=== PATIENT | female | born 2005 | race Caucasian/White ===

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

== ENCOUNTER 2024-11-13 10:50 | Emergency (ER) | payer BC, MEDICAID, SELFPAY ==
--- OUTSIDE RECORDS SUMMARY | 2024-11-13 10:53 | XMS_ITS | Referral Summary ---
Author Organization [facility] Address [address] [place] [address] Care Team Providers Care Client Associate Name Role Phone No, Physician Primary Care Provider [phone] Allergies No known active allergies Medications medroxyPROGESTERon e (PROVERA) 10 mg tablet Take 1 tablet three times daily for 3 days followed by 1 tablet twice daily for 3 days followed by 1 tablet daily for 3 days 18 tablet 2 Active norelgestromin-eth in.estradioL (ORTHO EVRA) 150-35 mcg/24 hrIndications:Preg syl Contraception Apply 1 patch each week for 3 weeks, then remove for 1 week. 3 patch 3 Active ARIPiprazole (ABILIFY) 10 mg tablet Take 1 tablet (10 mg total) by mouth daily 3 Active escitalopram (LEXAPRO) 10 mg tablet Take 1 tablet (10 mg total) by mouth daily Active Active Problems No known active problems Immunizations Immunization Administration Dates Next Due DTaP 01/25/2005,04/25/2004,02/21/2004 ,2003 DTaP / IPV 02/17/2009 HPV9 12/27/2021,07/15/2018,01/08/2018 Hep A, Ped Unspecified 10/30/2009,02/17/2009 Hep B / HiB 04/25/2004 Hep B, Adolescent or Pediatric 2003,2003 HiB 10/24/2004,02/21/2004,2003 IPV 10/24/2004,02/21/2004,2003 Influenza, Split 02/17/2009 Influenza, Unspecified 05/04/2007,04/25/2004 MMR 02/17/2009,10/24/2004 Meningococcal MCV4P (Menactra) 01/08/2018 Pneumococcal Conjugate 7-Valent 10/24/2004,04/25,02/21/2004,2003 Tdap 01/08/2018 Varicella 02/17/2009,10/24/2004 Social History Tobacco Use Types Packs/Day Years Used Date Smoking Tobacco: Every Day Cigarettes Smokeless Tobacco: Never Tobacco Cessation:Ready to Q uit: Not Asked; Counseling Given: Not Answered Personal Safety Answer Date Recorded Getting School Help Needed Not on file 06/12 Comments No Sex and Gender Information Value Date Recorded Sex Assigned at Not on file Legal Sex Female 9:53 AM FORESTRY ADVISER Gender Identity Not on file Sexual Orientation Not on file Occupation Industry Job Start Date Job End Date [employer] Not on file Not on file Not on file Last Filed Vital Signs Vital Sign Reading Time Taken Comments Blood Pressure 118/72 04/18/2022 2:18 PM FORESTRY ADVISER Pulse - - Temperature - - Respiratory Rate - - Oxygen Saturation - - Inhaled Oxygen Concentration - - Weight 58.9 kg (129 lb 12.8 oz) 04/18/2022 2:18 PM FORESTRY ADVISER Height 170.2 cm (5' 7) 12/27/2021 3:26 PM CDT Body Mass Index 20.33 12/27/2021 3:26 PM CDT Plan of Treatment Not on file Insurance Care Teams Client Associate Relationship Specialty Start Date End Date No, Physician PCP - General 10/03/21
--- OUTSIDE RECORDS SUMMARY | 2024-11-13 10:53 | XMS_ITS | Patient Health Record ---
Author Organization [facility] Address [address] [place] [address] Support Name Relationship Address Phone Penny Kaiser Guarantor Unknown Unavailable Allergies Allergen (clinical drug ingredient) Drug/Non Drug Allergy documented on EMR Reaction Allergy Type Onset Date Status Seasonale Sneeze & feeling my own manic tendencies start to rise without being able to help it myself unfortunately Drug Allergy Active Grass Mix Pollens Allergen Ext Sneeze , stuffy head, a need to shut down at that specific point in time Drug Allergy Active Reason For Referral No Information Medications Medication SIG (Take, Route, Frequency, Duration) Notes Start Date End Date Status Bromfed DM 2-30-10 MG/5ML 10 ml as neede d Orally every 8 hrs as needed for cough and congestion for 7 days 08/02/2023 Unknown Amoxicillin 500 MG 1 capsule Orally jairon ry 8 hrs for 7 days 08/02/2023 Unknown hydrOXYzine HCl 25 MG 1 tablet as needed for anxiousness Orally Every 6 hours for 14 days 10/16/2023 Active Social History Tobacco Use: Social History Observation Description Date Details (start date - stop date) Never Smoker NA - NA Tobacco Use/Smoking Question Answer Notes Are you a nonsmoker Plan Of Treatment Pending Test Test Name Order Date COMPREHENSIVE METABOLIC PANEL (10344) CBC (INCLUDES DIFF/PLT) (6399) THYROID PANEL WITH TSH (7444) 10/16/2023 Insurance Providers Payer Name Payer Address Payer Phone Subscriber Number Group Number Insured Name Patient Relationship to Insured Coverage Start Date Coverage End Date Medicaid of [place] [address] [address] [place] [address] [id number] Penny Kaiser Self - patient is the insured Medical (General) History Medical History History ICD Code Undiagnosed/Diagnosed Manic Bipolar Diso rder 16-17 years old honestly OCD Same day I was told some thing I wasn't and I knew that already I'm not stupid I promise you that they make people feel dumb and they know that
--- OUTSIDE RECORDS SUMMARY | 2024-11-13 10:53 | XMS_ITS | Clinical Summary ---
Author Organization [facility] Address [address] [place] [address] Care Team Providers Care Retail Merchandiser Technician Name Role Phone No, Physician Primary Care Provider [phone] Allergies No known active allergies Medications medroxyPROGESTERon [...] on file Legal Sex Female 9:53 AM CARD MAKER Gender Identity Not on file Sexual Orientation Not on file Occupation Industry Job Start Date Job End Date [employer] Not on file Not on file Not on file Obstetrics History Para Term AB IAB SAB Ectopic Multiple Livin g Live Births 0 0 0 0 0 0 0 0 0 0 0 Last Filed Vital Signs Vital Sign Reading Time Taken Comments Blood Pressure 118/72 04/18/2022 2:18 PM CARD MAKER Pulse - - Temperature - - Respiratory Rate - - Oxygen Saturation - - Inhaled Oxygen Concentration - - Weight 58.9 kg (129 lb 12.8 oz) 04/18/2022 2:18 PM CARD MAKER Height 170.2 cm (5' 7) 12/27/2021 3:26 PM CDT Body Mass Index 20.33 12/27/2021 3:26 PM CDT Plan of Treatment Health Maintenance Due Date Last Done Comments Cervical Cancer Screening 2003 Chlamydia and Gonorrhea (GC/CT) Screening 2003 Depression Screening 2003 Hepatitis C Screening 2003 Pneumococcal vaccine <65 (1 of 1 - PPSV23) 10/20/2009 10/24/2004, 04/25/2004, 02/21/2004, Additional history exists Meningococcal B Vaccine (1 of 2 - Standard) 2019 Regular Well Visit/Exam 18-64 10/20/2021 Influenza Vaccine (Season Ended) 2025 02/17/2009, 05/04/2007, 04/25/2004 DTaP/Tdap/Td Vaccine (7 - Td or Tdap) 01/09/2028 01/08/2018, 02/17/2009, 01/25/2005, Additional history exists Hepatitis B Screening Completed 04/25/2004 , 2003, 2003 Varicella Vaccines Completed 02/17/2009, 10/24/2004 Meningococcal Vaccine Aged Out 01/08/2018 No jose kristin eligible based on patient's age to complete this topic HPV Vaccines Completed 12/27/2021, 11/2018, 01/08/2018 Insurance [facility] Care Teams Retail Merchandiser Technician Relationship Specialty Start Date End Date No, Physician PCP - General 10/03/21
--- OUTSIDE RECORDS SUMMARY | 2024-11-13 10:53 | XMS_ITS | Clinical Summary ---
Author Organization [facility] [employer] Address [address] [place] [address] Care Team Providers Care Torch Operator Name Role Phone Unavailable Primary Care Provider Unavailabl e Source Comments [facility],non-owned Affiliates and Associated Physician Practices is amultiple site organization consisting of ambulatory clinics and hospital sitesin [place], [place], [place] and [place]. This disclosure is being madepursuant to the Care Everywhere program and may not contain all information available regarding this patient. Last updated 18.[facility] [employer] Allergies No known active allergies Medications * This document contains information received from the source organization and may not represent a complete record from that organization. * Be aware that medications may not be up to date on this document. Alwaysverify current medications with the patient. escitalopram (Lexapro) 20 MG tabletIndicati ons:Major Depressive Disorder,Postt raumatic Stress Disorder Take 1 (one) tablet by mouth once daily for 15 days Reasons: Major Depressive Disorder, Posttraumatic Stress Disorder 15 tablet 1 4 Active hydrOXYzine HCl (Atarax) 50 MG tabletIndicati ons:Anxiety Take 1 (one) tablet by mouth 2 times daily as needed Reasons: Feeling Anxious 30 tablet 1 4 Active traZODone (Desyrel) 50 MG tabletIndicati ons:Insomnia,M ajor Depressive Disorder Take 1 (one) tablet by mouth nightly as needed for Insomnia Reasons: Major Depressive Disorder, Trouble Sleeping 15 tablet 1 4 Active Active Problems Problem Noted Date Diagnosed Date Post traumatic stress disorder (PTSD) 12/26/2023 Adjustment disorder with depressed mood 12/23/19 24 Cannabis use disorder 12/23/2023 Social History Tobacco Use Types Packs/Day Years Used Date Smoking Tobacco: Some Days Cigarettes Smokeless Tobacco: Never Tobacco Cessation:Ready to Q uit: No; Counseling Given: Yes Alcohol Use Standard Drinks/Week Comments Not Currently 0 (1 standard drink = 0.6 oz pur e alcohol) just occasionally AUDIT-C Answer Date Recorded Q1: How often do you have a drink containing alc ohol? Monthly or less 12/23/2023 Q2: How many drinks containi ng alcohol do you have on a typical day when you are drinking? 1 or 2 12/23/2023 Q3: How often do you have si x or more drinks on one occasion? Never 12/23/2023 Overall Financial Resource Strain (CARDIA) Answe r Date Recorded How hard is it for you to pa y for the very basics like food, housing, medical care, and heating? Somewhat hard 12/23/2023 [facility] Occup[facility] ional [facility] - Occupational Stress Questionnaire Answer Date Recorded Do you feel stress - tense, restless, nervous, or anxious, or unable to sleep at night because your mind is troubled all the time - these days? Only a little 12/23/2023 Hunger Vital Sign Answer Date Recorded Within the past 12 months, y ou worried that your food would run out before you got the money to buy more. Sometimes true Within the past 12 months, t he food you bought just didn't last and you didn't have money to get more. Never true PRAPARE - Transportation Answer Date Re corded In the past 12 months, has l ack of transportation kept you from medical appointments or from getting medications? No 12/07 In the past 12 months, has l ack of transportation kept you from meetings, work, or from getting things needed for daily living? No 12/23/2023 Housing Stability Vital Sign Answer Campos e Recorded In the last 12 months, was t here a time when you were not able to pay the mortgage or rent on time? Patient declined 12/23/19 24 In the last 12 months, how many places have you lived? 1 12/23/2023 In the last 12 months, was t here a time when you did not have a steady place to sleep or slept in a mcc (including now)? No 12/23/2023 Comments No Sex and Gender Information Value Date Recorded Sex Assigned at Not on file Legal Sex Female 11:17 AM RHIC SYSTEMS SAFETY ENGINEER Gender Identity Not on file Sexual Orientation Not on file Last Filed Vital Signs Vital Sign Reading Time Taken Comments Blood Pressure 116/71 12/27/2023 7:37 AM CDT Pulse 75 12/27/2023 7:37 AM CDT Temperature 36.7 C (98.1 F) 12/27/2023 7:37 AM CDT Respiratory Rate 16 12/27/2023 7:37 AM CDT Oxygen Saturation 100% 12/27/2023 7:37 AM CDT Inhaled Oxygen Concentration - - Weight 54.4 kg (120 lb) 12/23/2023 3:40 AM CDT Height 171 cm (5' 7.32) 12/23/2023 3:40 AM CDT Body Mass Index 18.61 12/23/2023 3:40 AM CDT Plan of Treatment Health Maintenance Due Date Last Done Comments PAP SMEAR 2003 HIV SCREENING 10/20/2018 HPV VACCINE (1 - 3-dose series) 10/20/2018 CHLAMYDIA/GONORRHEA SCREENING 2019 MENINGOCOCCAL (Group B) VACCINE SHARED DECISION-MAKING (1 of 2 - Standard) 2019 HEPATITIS C SCREENING 10/16/2021 DTAP/TDAP/TD VACCINES (1 - Tdap) 10/20/2022 HEPATITIS B VACCINE (1 of 3 - 19+ 3-dose series) 10/20/2022 PNEUMOCOCCAL VACCINE (1 of 2 - PCV) 10/20/2022 COVID-19 VACCINE (1 - 2023-2 5 season) 2024 DEPRESSION SCREENING 06/09/2024 INFLUENZA VACCINE (Season Ended) 2025 02/17/2009, 05/04/2007, 04/25/2004 ZOSTER VACCINE (1 of 2) 10/20/2053 HIB VACCINE Aged Out No longer eligi ble based on patient's age to complete this topic MENINGOCOCCAL GROUPS A/C/Y/W VACCINE Aged Out No longer eligible b ased on patient's age to complete this topic Insurance [facility] Advance Directives * Full Code (Latest Code Status on File) Date Activated Date Inactivated Comments 12/23/2023 4:07 AM 12/27/2023 7:56 PM
--- OUTSIDE RECORDS SUMMARY | 2024-11-13 10:53 | XMS_ITS | Clinical Summary ---
Author Organization [facility] Address [address] [place] [address] Phone Care Team Providers Care Digital Media Associate Name Role Phone Seamus Travis PAC Primary Care Provider Allergies No known active allergies Medications Xulane 150-35 MCG/24HR PATCH WEEKLY APPLY 1 PATCH EACH WEEK FOR 3 WEEKS, THEN REMOVE FOR 1 WEEK. 2 Active escitalopram (LEXAPRO) 10 MG TabletIndicatio ns:Anxiety and depression Take 1 Tablet by mouth daily. 90 Tablet 3 3 Active Additional Information Patient not taking.Reported on 12/22/2023 Active Problems No known active problems Immunizations Immunization Administration Dates Next Due DTAP VACCINE 01/25/2005, 4,02/21/2004,12/28 DTAP-IPV 02/17/2009 HEP B/HIB Combined Vaccine 04/25/2004 Hepatitis A, Pediatric, Unsp ecified Formulation 10/30/2009,02/17/2009 Hepatitis B Vaccine, Pediatric/adolescent 2003,2003 Hib Vaccine,unspecified Formulation 10/24/2004,0 02/21/2004,2003 Human Papillomavirus (HPV) 9 -valent Vaccine 12/27/2021,07/15/2018,01/08/2018 Inactivated Polio Vaccine 10/24/2004,02/21/2004, 2003 Influenza Vaccine,unspecifie d Formulation 05/04/2007,04/25/2004 MMR Vaccine 02/17/2009,10/24/2004 Meningococcal Vaccine 01/08/2018 Pneumococcal Vaccine Peds - 7 Valent ,04/25/2004,02/21/2004,12/28 TDAP Vaccine 01/08/2018 Varicella Vaccine Live 02/17/2009,10/24/2004 Family History Medical History Relation Name Comments Diabetes Maternal Grandmother Relation Name Status Comments Father Alive Maternal Grandmother Alive Mother Alive Social History Tobacco Use Types Packs/Day Years Used Date Smoking Tobacco: Never Smokeless Tobacco: Never Tobacco Cessation:Counseling Given: Not Answered Alcohol Use Standard Drinks/Week Comments Yes 0 (1 standard drink = 0.6 oz pur e alcohol) PHQ-2 Answer Date Recorded Total Score - Questions 1-9 13 06/2022 Comments No Sex and Gender Information Value Date Recorded Sex Assigned at Not on file Legal Sex Female 12:25 AM CDT Gender Identity Not on file Sexual Orientation Not on file Last Filed Vital Signs Vital Sign Reading Time Taken Comments Blood Pressure 125/75 12/23/2023 1:51 AM CDT Pulse 88 12/22/2023 5:44 PM CDT Temperature 36.6 C (97.9 F) 12/22/2023 5:44 PM CDT Respiratory Rate 18 12/22/2023 5:44 PM CDT Oxygen Saturation 95% 12/22/2023 5:44 PM CDT Inhaled Oxygen Concentration - - Weight 59 kg (130 lb) 12/22/2023 5:44 PM CDT Height 170.2 cm (5' 7) 12/22/2023 5:44 PM CDT Body Mass Index 20.36 12/22/2023 5:44 PM CDT Plan of Treatment Health Maintenance Due Date Last Done Comments Hepatitis C Virus (HCV) Screening 2003 Meningococcal B Immunization (1 of 2 - Standard) 2019 SARS-COV-2 Immunization (1 - season) 2024 Pap Smear 10/20/2024 Influenza Immunization (Season Ended) 2025 02/17/2009, 05/04/2007, 04/25/2004 DTaP/Tdap/Td Immunization (7 - Td or Tdap) 01/09/2028 01/08/2018, 02/17/2009, 01/25/2005, Additional history exists Respiratory Syncytial Virus (RSV) Immunization (Adult) (1 - 1-dose 75+ series) 10/20/2078 Hepatitis B Immunization Completed 004, 2003, 2003 Pneumococcal Immunization Combined Aged Out 10/24/2004, 04/25/2004, 02/21/2004, Additional history exists No longer eligible based on patient's age to complete this topic Measles Mumps Rubella (MMR) Immunization Discontinued 02/17/2009, 10/24/2004 Polio (IPV) Immunization Discontinued 009, 10/24/2004, 02/21/2004, Additional history exists Varicella Immunization Discontinued 02/17/2009, 2004 Hepatitis A Immunization Discontinued 10/30/2009, 02/07 Meningococcal Immunization (ACWY) Aged Out 01/08/2018 No longer eligible based on patient's age to complete this topic Human Papillomavirus (HPV) Immunization Completed 12/27/2021, 07/15/2018, 01/08/2018 Rotavirus Immunization Aged Out No lo nger eligible based on patient's age to complete this topic Insurance MEDICAID [facility] Care Teams Digital Media Associate Relationship Specialty Start Date End Date Seamus Travis, PAC [address] [place] [address] PCP - General Physician Electrical Foreman 07/10/22
--- OUTSIDE RECORDS SUMMARY | 2024-11-13 10:53 | XMS_ITS | Data Portability ---
Author Organization [email or web address], Main Office Address [address] [place] [address] Assessment No assessment recorded. Plan of Treatment Reminders Order Date Submit Date Provider Last Modified By Organization Details Last Modified Time Details Appointments None recorded. Lab None recorded. Referral None recorded. Procedures cerumen removal (PROC) [phone] [email or web address] Not available 12:21:28 Surgeries None recorded. Imaging None recorded. Medication Orders None recorded. Patient TargetsNo targets recorded. Patient InstructionsNo instructions recorded. Reason for Referral None Reported. Problems Name Problem SNOMED Code Status Onset Date Resolution Date Notes Provider Name and Address Organization Details Recorded Time Impacted cerumen of bilateral ears 64691611240370 08 Active 2024 Lu Tucker, ALEXANDRA [address] [facility] [address], [place], [address] [email or web address] 12:21:16 Problem Notes None recorded. Medical Equipment None Reported. Allergies No known drug allergies Medications Name Sig Start Date Stop Date Status Note LastModified by Organization Details LastModified Time trazodone 50 mg tablet TAKE 1 (ONE) TABLET BY MOUTH NIGHTLY NEEDED FOR INSOMNIA 10/06 completed Not Available Not Available Not Available nicotine (polacrilex ) 2 mg gum PLEASE SEE ATTACHED FOR DETAILED DIRECTION S 10/06 completed Not Available Not Available Not Available hydroxyzine HCl 50 mg tablet TAKE 1 (ONE) TABLET BY MOUTH 2 TIMES DAILY NEEDED REASONS: FEELING ANXIOUS 10/06 completed Not Available Not Available Not Available hydroxyzine HCl 25 mg tablet 1 TABLET NEEDED FOR ANXIOUSNE SS ORALLY EVERY 6 HOURS 14 DAYS 10/06 completed Not Available Not Available Not Available escitalopra m 20 mg tablet TAKE 1 TABLET BY MOUTH EVERY DAY 10/06 completed Not Available Not Available Not Available aripiprazol e 10 mg tablet TAKE 1 TABLET BY MOUTH EVERY DAY FOR MOOD DISORDER 10/06 completed Not Available Not Available Not Available aripiprazol e 5 mg tablet TAKE 1 TABLET BY MOUTH EVERY DAY 10/06 completed Not Available Not Available Not Available Twirla 120 mcg-30 mcg/24 hr transdermal patch APPLY 1 PATCH TOPICALLY EVERY WEEK FOR 21 DAYS active Not Available Not Available No t Available Vitals Date Recorded Body weight Body mass index (BMI) Body mass index (BMI) Percentile per age and sex Body height Body temperature Provider Name and Address Organization Details Last Updated DateTime 10/06/2024 17976.86 g 25.9 kg/m2 81 % 172.72 cm 97.5 [degF] Lu Eckert RN [facility] [employer] [facility] 12:01:40 Social History None recorded. Functional Status None recorded. Mental Status None recorded. Family History Nothing Reported Notes:FATHER: SMALL EAR MICHELLE LS, DECREASED HEARING, CHRONIC EAR INFECTIONS Medical History Condition Response NO SIGNIFICANT PAST MEDICAL HISTORY Y Gynecological HistoryNo gynecological history recorded. Obstetrics History GPAL:G 0 P 0 0 0 0 Past Encounters Encounter ID Performer Location Encounter Start Date Encounter Closed Date Diagnosis/Indication Diagnosis SNOMED-CT Code Diagnosis ICD10 Code Diagnosis Note [id number] Margarito Duggan MD [facility] [address] [place] [address] 10/06/2024 11:53:01 10/06/2024 12:22:11 Impacted cerumen of bilateral ears 6110274626 348008 H61.23 bilateral cerumen impaction successful ly removed with irrigation Health Concerns Section Related Observation LastModified by Organization Detai ls LastModified Time None Recorded Concern Status LastModified by Organization Details LastModified Time None Recorded Advance Directives Directive None Recorded Payers Encounter Date Sequence Insurance Name Policy Number Policy Luevano Covered Member ID Luevano Member ID Guarantor Name 10/06/2024 1 MEDICAID-[place]: [place] [employer] Penny Kaiser [id number] Penny Kaiser Notes Date Note Type Note Provider Name and Address Organization Details Recorded Time 10/06/2024 text/html this patient has a significant past medical history. She presents to the office with a complaint of ear congestion and decreased hearing. She reports that her left ear is worse than her right and has been on and off intermittently for the last several weeks. She denies use of any [id number] earwax removal kit. She does admit to a history is copious cerumen production with ear cleaning past. Lu Tucker, EGG WORKER [address] [facility], [facility] [address], [place], [address], [place] [facility] 10/06/2024 12:21:41 OBGyn Episode No OBEpisode recorded.
--- OUTSIDE RECORDS SUMMARY | 2024-11-13 10:53 | XMS_ITS | Patient Health Record ---
Author Organization [facility] Address [address] [place] [address] Care Team Providers Care Improvement Specialist Name Role Phone Paloma Bryson Primary Care Provider [phone] Allergies No Known Allergies Reason For Referral No Information Medications Medication SIG (Take, Route, Fr equency, Duration) Notes Start Date End Date Status risperiDONE 1 MG 1 tablet Orally twic e a day for 30 days Active Xulane 150-35 MCG/24HR as directed Transdermal Active Lexapro 10 MG 1 tablet Orally Once a day Active Social History Tobacco Use: Social History Observation Description Date Details (start date - stop date) Unknown Dont use, Tobacco Use/Smoking Question Answer Notes Are you a Uses tobacco in other forms Additional Findings: Tobacco User e-Cigarette Problems Problem Type SNOMED Code ICD Code Onset Dates Problem Status W/U Status Risk Notes Problem Posttraumatic stress disorder (08303085) PTSD (post-traumat ic stress disorder) (F43.10) Active confirmed Problem Bipolar II disorder (36766844) Bipolar 2 disorder (F31.81) Active confirmed Encounters Encounter Location Date Provider Diagnosis [address] [place] [address] 12/18/2023 Paloma Bryson Plan Of Treatment No Information Insurance Providers Payer Name Payer Address Payer Phone Subscriber Number Group Number Insured Name Patient Relationship to Insured Coverage Start Date Coverage End Date [employer] [facility] [address] [place] [address] [id number] Penny Kaiser Self - patient is the insured 3 [employer] [address] [place] [address] [id number] Penny Kaiser Self - patient is the insured 3 Medical (General) History Surgical History Surgery Date(Month/Year) skin graft ear tubes (both) x2
--- OUTSIDE RECORDS SUMMARY | 2024-11-13 10:54 | XMS_ITS | Data Portability ---
Author Organization [facility] [place] Address [address] [place] [place] [address] Care Team Providers Care Radiographer Mammographer Name Role Phone RADHA DENISE [facility] Psychiatrist [phone] Assessment No assessment recorded. Plan of Treatment Reminders Order Date Submit Date Provider Last Modified By Organization Details Last Modified Time Details Appointments ANY 15 2024 02:00P M RADHA DENISE MD Not available Not available Not available Lab test, urine 2024 025 [email or web address] In-Office Order, Internal Use Only DO Not Attach Compendium DO Not Attach Compendium, Do Not Delete/merge, [id number] 09/29/2024 16:31:57 chlamydia trachomat is + neisseria gonorrhoe ae + trichomon as vaginalis rRNA panel, NATALIYA+probe 2024 025 [facility], [address] [place] [address], [id number], 10/01/2024 07:02:20 chlamydia trachomat is + neisseria gonorrhoe ae rRNA panel, NATALIYA+probe , nasophary nx 2024 025 [facility], [address] [facility] [facility] [address], [address], 10/01/2024 07:02:21 urinalysi s, dipstick 2022 023 In-Office Order, Internal Use Only DO Not Attach Compendium DO Not Attach Compendium, Do Not Delete/merge, [id number] 01/28/2023 14:50:35 culture, urine 2022 023 [facility], [address], [place], [address], 01/31/2023 03:08:27 chlamydia trachomat is + neisseria gonorrhoe ae + trichomon as vaginalis DNA panel, NATALIYA+probe , unspecifi ed specimen 2022 023 [facility], [address] [facility], [facility], [place], [address], 01/31/2023 03:08:26 Referral counselin g referral - assessed by [facility] while inpatient at [facility] ; recommend ed trauma therapy 2023 024 [facility], [address] [place] [address], [id number], 01/28/2024 15:59:59 psychiatr ist referral - assessed by [facility] while inpatient at [facility] 2023 024 [facility], [address] [place] [address], [id number], 01/28/2024 16:00:00 Procedures None recorded. Surgeries None recorded. Imaging None recorded. Medication Orders Twirla 120 mcg-30 mcg/24 hr transderm al patch 2024 025 [facility][id number], [address] [place], [address], 09/29/2024 16:32:14 aripipraz ole 5 mg tablet 2023 025 [facility] #[id number], [address] [place], [address], 09/29/2024 16:09:14 aripipraz ole 10 mg tablet 2023 024 [facility] #[id number], [address] [place], [address], 09/29/2024 16:09:11 Macrobid 100 mg capsule 2022 024 [facility]armacy #[id number], [address] [place], [address], 01/09/2024 12:44:01 Patient TargetsNo targets recorded. Patient Instructions Encounter Date Encounter Id Patient Instructions Last Modified By Organization Details Last Modified Time 01/28/2023 [id number] painful urinatio n (dysuria): care instructions Not available 01/28/2023 14:50:35 learning about mood disorders Not available 01/28/2023 14:51:30 Take all antibiotics as prescribed. Do not use bubble baths. Wipe from front to back. Take 500 mg Vitamin C twice a day or try OTC cranberry pills or 100% cranberry juice. Increase fluids. Not available 01/28/2023 22:25:07 follow up with pcp as needed Not available 01/28/2023 22:25:14 Reason for Referral Counseling [facility]; recommended trauma therapy Referring Physician: Radha Denise [facility], Encounter Date: 01/09/2024 Psychiatrist Referral for Mo od disorder assessed by Kris while inpatient at [facility] Referring Physician: Radha Denise [facility], Encounter Date: 01/09/2024 Results Created Date Observation Date Name Description Value Unit Range Abnormal Flag Note LastModifiedBy Organization Detail LastModifiedTime 01/29/2001/30/2023 CT, NG, TRICH VAG BY NATALIYA chlamydia by NATALIYA Negati ve negati ve Not Available [facility] ([facility]) [address] [facility], [place], [address], 01/31/2023 03:08:26 01/29/20 23 01/30/2023 CT, NG, TRICH VAG BY NATALIYA gonococcus by NATALIYA Negati ve negati ve Not Available [facility] ([facility]) [address] [facility], [place], [address], 01/31/2023 03:08:26 01/29/20 23 01/30/2023 CT, NG, TRICH VAG BY NATALIYA trich vag by NATALIYA Negati ve negati ve Not Available [facility] ([facility]) [address] [facility], [place], [address], 01/31/2023 03:08:26 01/29/20 23 01/30/2023 URINE CULTU RE,CO MPREH ENSIV E urine culture,comp rehensive Final report Not Available [facility] ([facility]) [address] [facility], [place], [address], 01/31/2023 03:08:27 01/29/20 23 01/30/2023 URINE CULTU RE,CO MPREH ENSIV E result 1 Commen t Mixed uroge nital otilia Great er than 100,0 00 colon y formi ng units per mL Not Available [facility] ([facility]) [address] [facility], [place], [address], 01/31/2023 03:08:27 01/29/20 23 01/28/2023 urina lysis , dipst ick Leukocytes Trace Not Available In-Offi ce Order Internal Use Only DO Not Attach Compendium DO Not Attach Compendium, Do Not Delete/merge, [id number] 01/28/2023 14:33:26 01/29/20 23 01/28/2023 urina lysis , dipst ick Nitrite negati ve Not Available In-Office Order Internal Use Only DO Not Attach Compendium DO Not Attach Compendium, Do Not Delete/merge, [id number] 01/28/2023 14:33:26 01/29/20 23 01/28/2023 urina lysis , dipst ick Urobilinogen .2 Not Available In-Of fice Order Internal Use Only DO Not Attach Compendium DO Not Attach Compendium, Do Not Delete/merge, [id number] 01/28/2023 14:33:26 01/29/20 23 01/28/2023 urina lysis , dipst ick Protein Negati ve Not Available In-Office Order Internal Use Only DO Not Attach Compendium DO Not Attach Compendium, Do Not Delete/merge, 01/28/2023 14:33:01/29/20 23 01/28/2023 urina lysis , dipst ick pH 5.0 Not Available In-Office Order Internal Use Only DO Not Attach Compendium DO Not Attach Compendium, Do Not Delete/merge, 01/28/2023 14:33:26 01/29/20 23 01/28/2023 urina lysis , dipst ick Blood Negati ve Not Available In-Office Order Internal Use Only DO Not Attach Compendium DO Not Attach Compendium, Do Not Delete/merge, 01/28/2023 14:33:01/29/20 23 01/28/2023 urina lysis , dipst ick Specific [place] 1.005 Not Available In-Off ice Order Internal Use Only DO Not Attach Compendium DO Not Attach Compendium, Do Not Delete/merge, 01/28/2023 14:33:26 01/29/20 23 01/28/2023 urina lysis , dipst ick Ketone Negati ve Not Available In-Office Order Internal Use Only DO Not Attach Compendium DO Not Attach Compendium, Do Not Delete/merge, 01/28/2023 14:33:26 01/29/20 23 01/28/2023 urina lysis , dipst ick Bilirubin Negati ve Not Available In-Office Order Internal Use Only DO Not Attach Compendium DO Not Attach Compendium, Do Not Delete/merge, 01/28/2023 14:33:26 01/29/20 23 01/28/2023 urina lysis , dipst ick Glucose Negati ve Not Available In-Office Order Internal Use Only DO Not Attach Compendium DO Not Attach Compendium, Do Not Delete/merge, 01/28/2023 14:33:26 01/29/20 23 01/28/2023 urina lysis , dipst ick Appearance Clear Not Available In-Offi ce Order Internal Use Only DO Not Attach Compendium DO Not Attach Compendium, Do Not Delete/merge, [id number] 01/28/2023 14:33:26 01/29/20 23 01/28/2023 urina lysis , dipst ick Color Pale Yellow Not Available In-Office Order Internal Use Only DO Not Attach Compendium DO Not Attach Compendium, Do Not Delete/merge, [id number] 01/28/2023 14:33:26 12/22/19 24 12/22/2023 SARS- CoV-2 (COVI D-19) RNA [Pres ence] in Speci men by NATALIYA with probe detec tion sars-cov-2 (covid-19) N gene [presence] in specimen by NATALIYA with probe detection NOT DETECT ED text: (refer ence range for this test IS not detect ed) SARSC OV2 NOT DETEC NGUYEN (Refe rence Range for this test is Not Detec nguyen) 12/21 7:25 PM CDT [facility] Not Available Not Available 09/28/2024 09:40:52 12/22/19 24 12/22/2023 SARS- CoV-2 (COVI D-19) RNA [Pres ence] in Speci men by NATALIYA with probe detec tion Unknown Analyte Author ized Fact Sheets about this test for provid ers and patien ts are availa ble at: https: //www. fda.go v/medi julia-de vices/ emerge ncy-si tuatio ns-med ical-d evices /emerg ency-u se-aut horiza tions Autho rized Fact Sheet s about this test for provi ders and patie nts are avail able at: https ://ww w.fda .gov/ medic al-de vices /chaim gency -situ ation s-med ical- devic es/em ergen cy-us e-aut horiz ation s Not Available Not Available 09/28/2024 09:40:52 12/22/19 24 12/22/2023 SARS- CoV-2 (COVI D-19) RNA [Pres ence] in Speci men by NATALIYA with probe detec tion interpretati on and review of laboratory results Normal Not Available Not Available 09/08 09:40:52 12/22/19 24 12/24/2023 Bacte keaton ident ified in Urine by Cultu re microorganis m identified in specimen by culture MIXED GROWTH OF ONE OR MORE DISTAL URETHR AL CONTAM INANTS CULTU RE RESUL TS MIXED GROWT H OF ONE OR MORE DISTA L URETH RAL CONTA MINAN TS 12/23 11:56 AM CDT [facility] Not Available Not Available 09/28/2024 09:40:52 12/22/19 24 12/22/2023 Drugs of abuse panel - Urine by Scree n metho d amphetamine [presence] in urine by screen method NON DETECT ED text: non detect ed UR AMPHE TAMIN E NON DETEC NGUYEN NON DETEC NGUYEN 12/21 7:13 PM CDT [facility] Not Available Not Available 09/28/2024 09:40:52 12/22/19 24 12/22/2023 Drugs of abuse panel - Urine by Scree n metho d benzodiazepi valery [presence] in urine NON DETECT ED text: non detect ed UR BENZO [place] NON DETEC NGUYEN NON DETEC NGUYEN 12/21 7:13 PM CDT [facility] Not Available Not Available 09/28/2024 09:40:52 12/22/19 24 12/22/2023 Drugs of abuse panel - Urine by Scree n metho d benzoylecgon ine [presence] in urine NON DETECT ED text: non detect ed UR COCAI NE METAB OLITE NON DETEC NGUYEN NON DETEC NGUYEN 12/21 7:13 PM CDT [facility] Not Available Not Available 09/28/2024 09:40:52 12/22/19 24 12/22/2023 Drugs of abuse panel - Urine by Scree n metho d opiates [presence] in urine NON DETECT ED text: non detect ed UR OPIAT ES NON DETEC NGUYEN NON DETEC NGUYEN 12/21 7:13 PM CDT [facility] Not Available Not Available 09/28/2024 09:40:52 12/22/19 24 12/22/2023 Drugs of abuse panel - Urine by Scree n metho d phencyclidin e [presence] in urine NON DETECT ED text: non detect ed UR PHENC YCLID INE NON DETEC NGUYEN NON DETEC NGUYEN 12/21 7:13 PM CDT [facility] Not Available Not Available 09/28/2024 09:40:52 12/22/19 24 12/22/2023 Drugs of abuse panel - Urine by Nicki shirley cannabinoids [presence] in urine DETECT ED text: non detect ed abnormal UR CANNA BINOI D DETEC NGUYEN (A) NON DETEC NGUYEN 12/21 7:13 PM CDT [facility] Not Available Not Available 09/28/2024 09:40:52 12/22/19 24 12/22/2023 Drugs of abuse panel - Urine by Nicki shirley barbiturates [presence] in urine NON DETECT ED text: non detect ed UR RUI TURAT E NON DETEC NGUYEN NON DETEC NGUYEN 12/21 7:13 PM CDT [facility] Not Available Not Available 09/28/2024 09:40:52 12/22/19 24 12/22/2023 Drugs of abuse panel - Urine by Nicki shirley interpretati on and review of laboratory results Abnorm al Not Available Not Available 09:40:52 12/22/19 24 12/22/2023 CBC W Auto Diffe renti al panel - Blood leukocytes [#/volume] in blood by automated count 8.68 text: 4.00 - 12.00 10(3)/ mcL WBC 8.68 4.00 - 12.00 10(3) /mcL 12/21 6:32 PM CDT [facility] Not Available Not Available 09/28/2024 09:40:51 12/22/19 24 12/22/2023 CBC W Auto Diffe renti al panel - Blood erythrocytes [#/volume] in blood by automated count 4.18 text: 3.80 - 5.30 10(6)/ mcL RBC 4.18 3.80 - 5.30 10(6) /mcL 12/21 6:32 PM CD[facility] Not Available Not Available 09/28/2024 09:40:51 12/22/19 24 12/22/2023 CBC W Auto Diffe renti al panel - Blood hemoglobin [mass/volume ] in blood 13.4 g/dL low: 12g/dL high: 15.8g/ dL HEMOG LOBIN (HGB) 13.4 12.0 - 15.8 g/dL 12/21 6:32 PM [facility] Not Available Not Available 09/28/2024 09:40:51 12/22/19 24 12/22/2023 CBC W Auto Diffe renti al panel - Blood hematocrit [volume fraction] of blood by automated count 37.4 % low: 36%hig h: 47% HEMAT OCRIT (HCT) 37.4 36.0 - 47.0 % 12/21 6:32 PM [facility] Not Available Not Available 09/28/2024 09:40:51 12/22/19 24 12/22/2023 CBC W Auto Diffe renti al panel - Blood MCV [entitic mean volume] in red blood cells by automated count 89.5 fL low: 82fLhi gh: 96fL MCV 89.5 82.0 - 96.0 fL 12/21 6:32 PM CDT [facility] Not Available Not Available 09/28/2024 09:40:51 12/22/19 24 12/22/2023 CBC W Auto Diffe renti al panel - Blood MCH [entitic mass] by automated count 32.1 pg low: 26pghi gh: 34pg MCH 32.1 26.0 - 34.0 pg 12/21 6:32 PM CD[facility] Not Available Not Available 09/28/2024 09:40:51 12/22/19 24 12/22/2023 CBC W Auto Diffe renti al panel - Blood MCHC [entitic mass/volume] in red blood cells by automated count 35.8 g/dL low: 31g/dL high: 36g/dL MCHC 35.8 31.0 - 36.0 g/dL 12/21 6:32 PM CDT [facility] Not Available Not Available 09/28/2024 09:40:51 12/22/19 24 12/22/2023 CBC W Auto Diffe renti al panel - Blood platelets [#/volume] in blood 309 text: 140 - 440 10(3)/ mcL PLATE LET COUNT 309 140 - 440 10(3) /mcL 12/21 6:32 PM CDT [facility] Not Available Not Available 09/28/2024 09:40:51 12/22/19 24 12/22/2023 CBC W Auto Diffe renti al panel - Blood erythrocyte [distwidth] in red blood cells by automated count 13.1 % low: 11.8%h igh: 15.5% RDW 13.1 11.8 - 15.5 % 12/21 6:32 PM CDT [facility] Not Available Not Available 09/28/2024 09:40:51 12/22/19 24 12/22/2023 CBC W Auto Diffe renti al panel - Blood platelet [entitic mean volume] in blood by automated count 11 fL low: 9.7fLh igh: 12.4fL MPV 11.0 9.7 - 12.4 fL 12/21 6:32 PM CDT [facility] Not Available Not Available 09/28/2024 09:40:51 12/22/19 24 12/22/2023 CBC W Auto Diffe renti al panel - Blood neutrophils/ leukocytes in blood by automated count 65.4 % low: 47%hig h: 73% NEUTR OPHIL S 65.4 47.0 - 73.0 % 12/21 6:32 PM [facility] Not Available Not Available 09/28/2024 09:40:51 12/22/19 24 12/22/2023 CBC W Auto Diffe renti al panel - Blood lymphocytes/ leukocytes in blood by automated count 26.2 % low: 18%hig h: 42% LYMPH OCYTE S 26.2 18.0 - 42.0 % 12/21 6:32 PM [facility] Not Available Not Available 09/28/2024 09:40:51 12/22/19 24 12/22/2023 CBC W Auto Diffe renti al panel - Blood monocytes/le ukocytes in blood by automated count 6.9 % low: 4%high : 12% MONOC YTES 6.9 4.0 - 12.0 % 12/21 6:32 PM [facility] Not Available Not Available 09/28/2024 09:40:51 12/22/19 24 12/22/2023 CBC W Auto Diffe renti al panel - Blood eosinophils/ leukocytes in blood by automated count 0.6 % low: 0%high : 5% EOSIN OPHIL S 0.6 0.0 - 5.0 % 12/21 6:32 PM [facility] Not Available Not Available 09/28/2024 09:40:51 12/22/19 24 12/22/2023 CBC W Auto Diffe renti al panel - Blood basophils/le ukocytes in blood by automated count 0.9 % low: 0%high : 1% BASOP HILS 0.9 0.0 - 1.0 % 12/21 6:32 PM [facility] Not Available Not Available 09/28/2024 09:40:51 12/22/19 24 12/22/2023 CBC W Auto Diffe renti al panel - Blood neutrophils [#/volume] in blood by automated count 5.68 text: 1.60 - 7.70 10(3)/ mcL ABSOL UGASHIK NEUTR OPHIL S 5.68 1.60 - 7.70 10(3) /mcL 12/21 6:32 PM [facility] Not Available Not Available 09/28/2024 09:40:51 12/22/19 24 12/22/2023 CBC W Auto Diffe renti al panel - Blood lymphocytes [#/volume] in blood by automated count 2.27 text: 1.30 - 3.20 10(3)/ mcL ABSOL UGASHIK LYMPH OCYTE S 2.27 1.30 - 3.20 10(3) /mcL 12/21 6:32 PM [facility] Not Available Not Available 09/28/2024 09:40:51 12/22/19 24 12/22/2023 CBC W Auto Diffe renti al panel - Blood monocytes [#/volume] in blood by automated count 0.6 text: 0.20 - 1.00 10(3)/ mcL ABSOL UGASHIK MONOC YTES 0.60 0.20 - 1.00 10(3) /mcL 12/21 6:32 PM [facility] Not Available Not Available 09/28/2024 09:40:51 12/22/19 24 12/22/2023 CBC W Auto Diffe renti al panel - Blood eosinophils [#/volume] in blood by automated count 0.05 text: 0.00 - 0.40 10(3)/ mcL ABSOL UGASHIK EOSIN OPHIL 0.05 0.00 - 0.40 10(3) /mcL 12/21 6:32 PM [facility] Not Available Not Available 09/28/2024 09:40:51 12/22/19 24 12/22/2023 CBC W Auto Diffe renti al panel - Blood basophils [#/volume] in blood by automated count 0.08 text: 0.00 - 0.10 10(3)/ mcL ABSOL UGASHIK BASOP HILS 0.08 0.00 - 0.10 10(3) /mcL 12/21 6:32 PM [facility] Not Available Not Available 09/28/2024 09:40:51 12/22/19 24 12/22/2023 CBC W Auto Diffe renti al panel - Blood nucleated erythrocytes /leukocytes [ratio] in blood 0 NRBC PER 100 WBC 0 12/21 6:32 PM [facility] Not Available Not Available 09/28/2024 09:40:51 12/22/19 24 12/22/2023 Salic ylate s [Mass /volu me] in Serum or Plasm a salicylates [mass/volume ] in serum or plasma low: 15mg/d Lhigh: 30mg/d L low SALIC YLATE <5.0 (L) 15.0 - 30.0 mg/dL 12/21 6:59 PM CDT [facility] Not Available Not Available 09/28/2024 09:40:51 12/22/19 24 12/22/2023 Salic ylate s [Mass /volu me] in Serum or Plasm a interpretati on and review of laboratory results Abnorm al Not Available Not Available 09:40:51 12/22/19 24 12/22/2023 Aceta minop hen [Mass /volu me] in Serum or Plasm a acetaminophe n [mass/volume ] in serum or plasma text: 10 - 30 mcg/mL low ACETA MINOP HEN <3 (L) 10 - 30 mcg/m L 12/21 7:00 PM CDT [facility] Not Available Not Available 09/28/2024 09:40:51 12/22/19 24 12/22/2023 Aceta minop hen [Mass /volu me] in Serum or Plasm a interpretati on and review of laboratory results Abnorm al Not Available Not Available 09:40:51 12/22/19 24 12/22/2023 Magne sium [Mass /volu me] in Serum or Plasm a magnesium [mass/volume ] in serum or plasma 2.1 mg/dL low: 1.6mg/ dLhigh : 2.6mg/ dL MAGNE SIUM 2.1 1.6 - 2.6 mg/dL 12/21 6:59 PM CDT [facility] Not Available Not Available 09/28/2024 09:40:51 12/22/19 24 12/22/2023 Magne sium [Mass /volu me] in Serum or Plasm a interpretati on and review of laboratory results Normal Not Available Not Available 09/08 09:40:51 12/22/19 24 12/22/2023 Padmaja ol [Mass /volu me] in Serum or Plasm a ethanol [mass/volume ] in serum or plasma high: 10mg/d L PADMAJA OL <10 <10 mg/dL 12/21 6:59 PM CDT [facility] Not Available Not Available 09/28/2024 09:40:51 12/22/19 24 12/22/2023 Padmaja ol [Mass /volu me] in Serum or Plasm a interpretati on and review of laboratory results Normal Not Available Not Available 09/08 09:40:51 12/22/19 24 12/22/2023 Thyro tropi n [Unit s/vol ume] in Serum or Plasm a thyrotropin [units/volum e] in serum or plasma 0.378 text: 0.300 - 5.000 mIU/L TSH 0.378 0.300 - 5.000 mIU/L 12/21 7:13 PM CDT [facility] Not Available Not Available 09/28/2024 09:40:51 12/22/19 24 12/22/2023 Thyro tropi n [Unit s/vol ume] in Serum or Plasm a interpretati on and review of laboratory results Normal Not Available Not Available 09/08 09:40:51 12/22/19 24 12/22/2023 Compr ehens sheng metab olic 1999 panel - Serum or Plasm a sodium [moles/volum e] in serum or plasma 142 mmol/ L low: 136mmo l/Lhig h: 145mmo l/L SODIU M 142 136 - 145 mmol/ L 12/21 6:59 PM CDT [facility] Not Available Not Available 09/28/2024 09:40:51 12/22/19 24 12/22/2023 Compr ehens sheng metab olic 1999 panel - Serum or Plasm a potassium [moles/volum e] in serum or plasma 3.9 mmol/ L low: 3.5mmo l/Lhig h: 5.1mmo l/L POTAS SIUM 3.9 3.5 - 5.1 mmol/ L 12/21 6:59 PM CDT [facility] Not Available Not Available 09/28/2024 09:40:51 12/22/19 24 12/22/2023 Compr ehens sheng metab olic 1999 panel - Serum or Plasm a chloride [moles/volum e] in serum or plasma 109 mmol/ L low: 98mmol /Lhigh : 107mmo l/L high CHLOR BHARGAVI 109 (H) 98 - 107 mmol/ L 12/21 6:59 PM CDT [facility] Not Available Not Available 09/28/2024 09:40:51 12/22/19 24 12/22/2023 Compr ehens sheng metab olic 1999 panel - Serum or Plasm a carbon dioxide, total [moles/volum e] in serum or plasma 23 mmol/ L low: 22mmol /Lhigh : 30mmol /L CO2, VENOU S 23 22 - 30 mmol/ L 12/21 6:59 PM CDT [facility] Not Available Not Available 09/28/2024 09:40:51 12/22/19 24 12/22/2023 Compr ehens sheng metab olic 1999 panel - Serum or Plasm a anion gap in serum or plasma by calculation 13.9 mmol/ L high: 18mmol /L ANION GAP 13.9 <18.0 mmol/ L 12/21 6:59 PM CDT [facility] Not Available Not Available 09/28/2024 09:40:51 12/22/19 24 12/22/2023 Compr ehens sheng metab olic 1999 panel - Serum or Plasm a glucose [mass/volume ] in serum or plasma 72 mg/dL low: 70mg/d Lhigh: 99mg/d L GLUCO SE 72 70 - 99 mg/dL 12/21 6:59 PM [facility] Not Available Not Available 09/28/2024 09:40:51 12/22/19 24 12/22/2023 Compr ehens sheng [employer] olic 1999 panel - Serum or Plasm a urea nitrogen [mass/volume ] in serum or plasma 8 mg/dL low: 5mg/dL high: 18mg/d L BUN 8 5 - 18 mg/dL 12/21 6:59 PM CDT [facility] [employer] [facility] Not Available Not Available 09/28/2024 09:40:51 12/22/19 24 12/22/[address]23 [facility] Net[facility] 1999 panel - Serum or Plasm a creatinine [mass/volume ] in serum or plasma 0.75 mg/dL low: 0.6mg/ dLhigh : 1mg/dL CREAT ININE , BLOOD 0.75 0.60 - 1.00 mg/dL 12/21 6:59 PM CDT [facility] [employer] [facility] Not Available Not Available 09/28/2024 09:40:51 12/22/19 24 12/22/[address]23 [facility] Net[employer] olic 1999 panel - Serum or Plasm a urea nitrogen/cre atinine [mass ratio] in serum or plasma 11 text: 12 - 20 ratio low BUN/C REATI NINE RATIO 11 (L) 12 - 20 ratio 12/21 6:59 PM CDT [facility] [employer] [facility] Not Available Not Available 09/28/2024 09:40:51 12/22/19 24 12/22/2023 [facility] [employer] olic 1999 panel - Serum or Plasm a protein [mass/volume ] in serum or plasma 6.9 g/dL low: 6.3g/d Lhigh: 8.2g/d L TOTAL PROTE IN 6.9 6.3 - 8.2 g/dL 12/21 6:59 PM CDT [facility] [employer] [facility] LAB Not Available Not Available 09/28/2024 09:40:51 12/22/19 24 12/22/2023 [facility] [employer] olic 1999 panel - Serum or Plasm a albumin [mass/volume ] in serum or plasma 4.3 g/dL low: 3.5g/d Lhigh: 5g/dL ALBUM IN 4.3 3.5 - 5.0 g/dL 12/21 6:59 PM CDT [facility] Not Available Not Available 09/28/2024 09:40:51 12/22/19 24 12/22/2023 Compr ehens sheng metab olic 2000 panel - Serum or Plasm a albumin/glob ulin [mass ratio] in serum or plasma 1.7 low: 1high: 2.2 A/G RATIO 1.7 1.0 - 2.2 12/21 6:59 PM CDT [facility] Not Available Not Available 09/28/2024 09:40:51 12/22/19 24 12/22/2023 Compr ehens sheng metab olic 2000 panel - Serum or Plasm a calcium [mass/volume ] in serum or plasma 9.4 mg/dL low: 8.7mg/ dLhigh : 10.5mg /dL CALCI UM 9.4 8.7 - 10.5 mg/dL 12/21 6:59 PM CD[facility] Not Available Not Available 09/28/2024 09:40:51 12/22/19 24 12/22/2023 Compr ehens sheng metab olic 1999 panel - Serum or Plasm a bilirubin.to jack [mass/volume ] in serum or plasma 0.3 mg/dL low: 0.2mg/ dLhigh : 1.2mg/ dL T BILI 0.3 0.2 - 1.2 mg/dL 12/21 6:59 PM CDT [facility] [employer] [facility] Not Available Not Available 09/28/2024 09:40:51 12/22/19 24 12/22/2023 Compr ehens sheng metab olic 2000 panel - Serum or Plasm a aspartate aminotransfe rase [enzymatic activity/vol ume] in serum or plasma 14 U/L low: 5U/Lhi gh: 34U/L SGOT (AST) 14 5 - 34 U/L 12/21 6:59 PM CDT [facility] [employer] [facility] Not Available Not Available 09/28/2024 09:40:51 07/15/12/22/2023 Compr ehens sheng metab olic 1999 panel - Serum or Plasm a alanine aminotransfe rase [enzymatic activity/vol ume] in serum or plasma 10 U/L low: 0U/Lhi gh: 55U/L SGPT (ALT) 10 0 - 55 U/L 12/21 6:59 PM CDT [facility] [employer] [facility] Not Available Not Available 09/28/2024 09:40:51 12/22/19 24 12/22/2023 Compr [employer] sheng metab olic 1999 panel - Serum or Plasm a alkaline phosphatase [enzymatic activity/vol ume] in serum or plasma 88 U/L low: 40U/Lh igh: 150U/L [facility]AT[facility] E 88 40 - 150 U/L 12/21 6:59 PM [facility] [employer] [facility] Not Available Not Available 09/28/2024 09:40:51 12/22/19 24 12/22/2023 Compr [employer] sheng metab olic 1999 panel - Serum or Plasm a glomerular filtration rate [volume rate/area] in serum, plasma or blood by creatinine-b ased formula (MDRD)/1.73 sq M among non black population low: 60 GFR, ESTIM ATED >60 >=60 12/21 6:59 PM CDT [facility] [employer] [facility] Not Available Not Available 09/28/2024 09:40:51 12/22/19 24 12/22/2023 Compr [employer] sheng metab olic 1999 panel - Serum or Plasm a glomerular filtration rate [volume rate/area] in serum, plasma or blood by creatinine-b ased formula (MDRD)/1.73 sq M among black population low: 60 GFR, EST. AFRIC AN >60 >=60 12/21 6:59 PM CDT [facility] [employer] [facility] Not Available Not Available 09/28/2024 09:40:51 12/22/19 24 12/22/2023 Compr ehens sheng metab olic 2000 panel - Serum or Plasm a glomerular filtration rate [volume rate/area] in serum, plasma or blood by creatinine-b ased formula (MDRD)/1.73 sq M among non black population low: 60 GFR, EST. NONAF RICAN >60 >=60 12/21 6:59 PM CDT [facility] Not Available Not Available 09/28/2024 09:40:51 12/22/19 24 12/22/2023 Compr ehens sheng metab olic 2000 panel - Serum or Plasm a interpretati on and review of laboratory results Abnorm al Not Available Not Available 09:40:51 09/30/1910/01/2024 CT, NG, TRICH VAG BY NATALIYA chlamydia by NATALIYA NEGATI VE negati ve Not Available [facility] ([facility]) [address] [place], [address], 10/01/2024 07:02:20 09/30/1910/01/2024 CT, NG, TRICH VAG BY NATALIYA gonococcus by NATALIYA NEGATI VE negati ve Not Available [facility] ([facility]) [address] [place], [address], 10/01/2024 07:02:20 09/30/1910/01/2024 CT, NG, TRICH VAG BY NATALIYA trich vag by NATALIYA NEGATI VE negati ve Not Available [facility] ([facility]) [address] [place], [address], 10/01/2024 07:02:20 09/30/1909/30/2024 CT/GC NATALIYA, PHARY NGEAL C. trachomatis, NATALIYA, pharyn NEGATI VE negati ve Not Available [facility] ([facility]) [address] [place], [address], 10/01/2024 07:02:21 09/30/19 25 09/30/2024 CT/GC NATALIYA, PHARY NGEAL N. gonorrhoeae, NATALIYA, pharyn NEGATI VE negati ve Not Available [facility] ([facility]) [address] [place], [address], 10/01/2024 07:02:21 09/30/19 25 09/29/[address]24 [address]i test, urine HCG negati ve Not Available In-Office Order Internal Use Only DO Not Attach Compendium DO Not Attach Compendium, Do Not Delete/merge, [id number] 09/29/2024 16:18:47 Result Notes None recorded. Problems Name Problem SNOMED Code Status Onset Date Resolution Date Notes Provider Name and Address Organization Details Recorded Time Depressive disorder 95058747 Active 2022 Isabelle Lay [place] null, [place] - [facility] 3 15:54:43 History of Helicobacte r pylori infection [id number] 9108 Active 2022 RADHA DENISE MD Attn: [address] [place], [address], [place] [facility] 3 17:06:24 Mood disorder 48839056 Active 2023 RADHA DENISE MD Attn: [address] [place], [address], [place] [facility] 4 16:44:42 Insomnia 931314934 Active 2023 RADHA DENISE MD Attn: [address]ace [address] [place], [address], [place] [facility] 4 16:44:44 Problem Notes None recorded. Procedures Surgical History Date Name Laterality Status Provider Name and Address Organization Details Recorded Time 1 Depo Injection completed Isabelle Lay [place] [facility] 06/13/2020 10:53:35 0 Depo Injection completed Isabelle Lay [place] [facility] 03/22/2020 12:11:28 Ear Tube completed Cathy Brooke [place] [facility] 01/08/2018 13:55:27 Imaging Results None recorded. Procedure Notes None recorded. Medical Equipment None Reported. Allergies No known drug allergies Medications Name Sig Start Date Stop Date Status Note LastModified by Organization Details LastModified Time amoxicillin 500 mg capsule TAKE 1 CAPSULE BY MOUTH EVERY 8 HOURS FOR 7 DAYS 01/08 completed Not Available Not Available Not Available medroxyprog esterone 10 mg tablet PLEASE SEE ATTACHED FOR DETAILED DIRECTION S 10/17 completed Not Available Not Available Not Available trazodone 50 mg tablet TAKE 1 (ONE) TABLET BY MOUTH NIGHTLY NEEDED FOR INSOMNIA 09/29 completed Not Available Not Available Not Available azithromyci n 250 mg tablet TAKE 2 TABLETS BY MOUTH TODAY, THEN TAKE 1 TABLET DAILY FOR 4 DAYS 10/17 completed Not Available Not Available Not Available nicotine (polacrilex ) 2 mg gum PLEASE SEE ATTACHED FOR DETAILED DIRECTION S 01/08 completed Not Available Not Available Not Available ceftriaxone 250 mg solution for injection Take 500 mg by injection route. 08/16 completed Not Available Not Available Not Available metronidazo le 250 mg tablet TAKE 1 TABLET BY ORAL ROUTE 4 TIMES DAILY X 14 DAYS 10/17 completed Not Available Not Available Not Available metronidazo le 500 mg tablet Take 1 tablet twice a day by oral route. 04/12 completed Not Available Not Available Not Available hydroxyzine HCl 50 mg tablet TAKE 1 (ONE) TABLET BY MOUTH 2 TIMES DAILY NEEDED REASONS: FEELING ANXIOUS 09/29 completed Not Available Not Available Not Available lamotrigine 25 mg tablet 01/08 completed Not Available Not Available Not Available cephalexin 500 mg capsule TAKE 1 CAPSULE BY MOUTH EVERY 12 HOURS 01/28 completed Not Available Not Available Not Available omeprazole 20 mg capsule,del ayed release TAKE 1 CAPSULE BY MOUTH TWICE A DAY BEFORE MEALS FOR 14 DAYS 10/17 completed Not Available Not Available Not Available hydroxyzine HCl 25 mg tablet 1 TABLET NEEDED FOR ANXIOUSNE SS ORALLY EVERY 6 HOURS 14 DAYS 01/08 completed Not Available Not Available Not Available ceftriaxone 500 mg solution for injection Take 500 mg by injection route. 08/16 completed Not Available Not Available Not Available ondansetron 4 mg disintegrat ing tablet PLEASE SEE ATTACHED FOR DETAILED DIRECTION S 10/17 completed Not Available Not Available Not Available risperidone 1 mg tablet TAKE 1 TABLET BY MOUTH TWICE A DAY FOR 30 DAYS 01/08 completed Not Available Not Available Not Available medroxyprog esterone 150 mg/mL intramuscul ar suspension Inject 1 mL every 3 months by intramusc ular route. 10/17 completed Not Available Not Available Not Available risperidone 0.5 mg tablet TAKE 2 TABLETS BY MOUTH ONCE DAILY AT BEDTIME 01/08 completed Not Available Not Available Not Available amoxicillin 875 mg-potassiu m clavulanate 125 mg tablet TAKE 1 TABLET BY MOUTH TWICE A DAY FOR 10 DAYS 10/17 completed Not Available Not Available Not Available Stomach Relief 262 mg chewable tablet TAKE 2 TABLETS 4 TIMES DAILY X 14 DAYS 10/17 completed Not Available Not Available Not Available azithromyci n 500 mg tablet TAKE TWO TABLETS BY MOUTH ONCE 08/16 completed Not Available Not Available Not Available escitalopra m 10 mg tablet TAKE 1 TABLET BY MOUTH EVERY DAY 01/08 completed Not Available Not Available Not Available escitalopra m 20 mg tablet TAKE 1 TABLET BY MOUTH EVERY DAY 09/29 completed Not Available Not Available Not Available Sprintec (28) 0.25 mg-0.035 mg tablet Take 1 tablet every day by oral route. 03/22 completed Not Available Not Available Not Available aripiprazol e 10 mg tablet TAKE 1 TABLET BY MOUTH EVERY DAY FOR MOOD DISORDER 09/29 completed Not Available Not Available Not Available aripiprazol e 5 mg tablet TAKE 1 TABLET BY MOUTH EVERY DAY 09/29 completed Not Available Not Available Not Available bupropion HCl XL 150 mg 24 hr tablet, extended release TAKE 1 TABLET BY MOUTH EVERY DAY IN THE MORNING 10/17 completed Not Available Not Available Not Available 06/28 (28) 1 mg-20 mcg (21)/75 mg (7) tablet TAKE 1 TABLET BY MOUTH EVERY DAY 08/10 completed Not Available Not Available Not Available nitrofurant oin monohydrate /macrocryst als 100 mg capsule TAKE 1 CAPSULE BY MOUTH EVERY 12 HOURS FOR 5 DAYS 01/08 completed Not Available Not Available Not Available Xulane 150 mcg-35 mcg/24 hr transdermal patch APPLY 1 PATCH WEEKLY FOR 3 WEEKS THEN REMOVE FOR 1 WEEK 01/08 completed Not Available Not Available Not Available Plenvu 140 gram-9 gram-5.2 gram powder packs USE DIRECTED 10/17 completed Not Available Not Available Not Available Twirla 120 mcg-30 mcg/24 hr transdermal patch Apply 1 patch every week by transderm al route for 21 days. 2024 active Not Available Not Available Not Avai lable Vitals Date Recorded Body height Body mass index (BMI) Body mass index (BMI) Percentile per age and sex Body weight Oxygen saturation Oxygen saturation in Arterial blood by Pulse oximetry Heart rate Systolic blood pressure Diastolic blood pressure Provider Name and Address Organization Details Last Updated DateTime 5 167.64 cm 27.9 kg/m2 88 % 70055.4 8 g 100 % 100 % 78 /min 109 mm[Hg] 77 mm[Hg] Rebeka Martinez [place] [facility] 5 16:11:58 Date Recorded Body height Body mass index (BMI) Percentile per age and sex Body mass index (BMI) Body weight Oxygen saturation Oxygen saturation in Arterial blood by Pulse oximetry Heart rate Body temperature Systolic blood pressure Diastolic blood pressure Provider Name and Address Organization Details Last Updated DateTime 4 167.64 cm 26 % 19.9 kg/m2 40523.8 6 g 99 % 99 % 92 /min 98.7 [degF] 110 mm[Hg] 74 mm[Hg] Rebeka Hopkins [place] [facility] 4 14:56:20 Date Recorded Body height Body mass index (BMI) Percentile per age and sex Body mass index (BMI) Body weight Oxygen saturation Oxygen saturation in Arterial blood by Pulse oximetry Body temperature Heart rate Systolic blood pressure Diastolic blood pressure Provider Name and Address Organization Details Last Updated DateTime 4 167.64 cm 43 % 21.2 kg/m2 51470.3 g 100 % 100 % 98.1 [degF] 90 /min 114 mm[Hg] 76 mm[Hg] Isabelle Blackstock [place] - [facility] 4 12:41:09 Date Recorded Body height Body mass index (BMI) Body mass index (BMI) Percentile per age and sex Body weight Oxygen saturation Oxygen saturation in Arterial blood by Pulse oximetry Heart rate Respiratory rate Body temperature Systolic blood pressure Diastolic blood pressure Provider Name and Address Organization Details Last Updated DateTime 3 167.64 cm 26.1 kg/m2 85 % 96803.9 6 g 98 % 98 % 110 /min 16 /min 97.5 [degF] 110 mm[Hg] 60 mm[Hg] Lauryn Cruz [facility] 3 14:32:08 Date Recorded Body height Body mass index (BMI) Percentile per age and sex Body mass index (BMI) Body weight Heart rate Oxygen saturation Oxygen saturation in Arterial blood by Pulse oximetry Systolic blood pressure Diastolic blood pressure Provider Name and Address Organization Details Last Updated DateTime 4 167.64 cm 82 % 25.9 kg/m2 28746.8 3 g 96 /min 98 % 98 % 109 mm[Hg] 71 mm[Hg] Rebeka Martinez MA [facility] 4 15:50:18 Social History Question Answer Notes LastModified by Organizat ion Details LastModified Time Tobacco Smoking Status Never Smoker Cathy Brooke MA [facility], [place] - [facility] 01/08/2018 13:56:41 Animal Exposure? Yes 1 Dog [email or web address] Informa tion not available 01/08/2018 Are You Blind Or Do You Have Difficulty Seeing? No Information not available 10/17/2022 Is Blood Transfusion Acceptable In An Emergency? Yes Information not available 01/14/2018 What Is Your Level Of Caffeine Consumption? Occasional Information not available 10/17/2022 How Much Tobacco Do You Chew? None Information not available 01/14/2018 What Type Of Financial Data Analyst Do You Use? None [email or web address] Information not available 01/08/2018 In The 14 Days Before Symptom Onset, Have You Had Close Contact With A Laboratory-confir med COVID-19 While That Case Was Ill? No [email or web address] Information not available 08/16/2020 In The 14 Days Before Symptom Onset, Have You Had Close Contact With A Person Who Is Under Investigation For COVID-19 While That Person Was Ill? No [email or web address] Information not available 08/16/2020 Have You Been To An Area Known To Be High Risk For COVID-19? No [email or web address] Information not available 08/16/2020 Are You Deaf Or Do You Have Serious Difficulty Hearing? No Information not available 10/17/2022 What Type Of Diet Are You Following? REGULAR [email or web address] Information not available 01/08/2018 Which Illicit Or Recreational Drugs Have You Used? Denies Information not available 01/14/2018 Education 12 Information no t available 10/17/2022 What Is The Highest Grade Or Level Of School You Have Completed Or The Highest Degree You Have Received? [id number] [email or web address] Information not available 08/16/2020 Have There Been Any Changes To Your Family Or Social Situation? No [email or web address] Information no t available 01/08/2018 Are There Any Guns Present In Your Home? No [email or web address] Information not available 01/08/2018 What Is Your Home Situation? Other Moms Friend Chase [email or web address] Information not available 12/18/2023 Do You Use Insect Repellent Routinely? Yes [email or web address] Information not available 01/08/2018 Live Alone Or With Others? With Others Information not available 01/14/2018 Car Seat Type Or Seat Belt? Seat Belt [email or web address] Information not available 01/08/2018 Parent Involvement? Mom Not Involved [email or web address] Information not available 01/08/2018 Riding In Car Front Seat? Yes [email or web address] Information not available 01/08/2018 What Was The Date Of Your Most Recent Tobacco Screening? 09/29/2024 Information not available 09/29/2024 How Many Children Do You Have? 0 Information not available 01/14/2018 What Is Your Parents' Marital Status? Unmarried Information not available 01/08/2018 Do You Have Any Pets? Yes Information not available 08/16/2020 Pool Exposure No [email or web address] Informatio n not available 01/08/2018 Do You Use Protection During Sex? Always Information not available 10/17/2022 What Is Your Relationship Status? Single Information not available 01/14/2018 Do You Use Your Seat Belt Or Car Seat Routinely? Yes [email or web address] Information not available 08/16/2020 Seat Belts Used Routinely Yes Information not available 01/14/2018 Are You Sexually Active? Yes Information not available 05/26/2018 Do You Have Any Siblings? 1 1/2 Brotehr On Mom Side [email or web address] Information not available 01/08/2018 Do You Have Smoke And Carbon Monoxide Detectors In Your Home? Yes [email or web address] Information not available 01/08/2018 Are You Passively Exposed To Smoke? No Information no t available 10/17/2022 How Much Tobacco Do You Smoke? No [email or web address] Information not available 07/20/2019 General Stress Level High Information not available 10/17/2022 Do You Use Sunscreen Routinely? No Information not available 01/14/2018 Has Tobacco Cessation Counseling Been Provided? Yes Information not available 10/17/2022 On What Date Was Tobacco Cessation Counseling Provided? 09/29/2024 Information not available 09/29/2024 Year In School HS Grad Informatio n not available 10/17/2022 How Many Years Have You Used E-cigarettes Or Vape? 4 Information not available 10/17/2022 Sex: Female Functional Status Question Answer Note LastModified by Organizat ion Details LastModified Time Do you use any illicit or recreational drugs? Yes rodri [email or web address] Information not available 01/28/2023 Do you or have you ever used any other forms of tobacco or nicotine? No [email or web address] Information not available 08/16/2020 What is your level of alcohol consumption? None Information not available 01/14/2018 Do you or have you ever used smokeless tobacco? Never used smokeless tobacco [email or web address] Information not available 07/20/2019 Are you currently employed? No [email or web address] Information not available 01/28/2023 Are you able to care for yourself? Yes Information not available 10/17/2022 Do you or have you ever used e-cigarettes or vape? Current user of electronic cigarettes Information not available 10/17/2022 What is your exercise level? Heavy Information not available 10/17/2022 Mental Status Question Answer Note LastModified by Organization D etails LastModified Time Do you feel stressed (tense, restless, nervous, or anxious, or unable to sleep at night)? [id number] Information not available 10/17/2022 Are you or have you been involved with bullying? No [email or web address] Information not available 01/08/2018 Family History Relationship Description Onset Age of this Age Resolved Age Notes LastModified by Organization Details LastModified Time Maternal Grandfather Diabetes mellitus [email or web address] Not available 07/2017 13:56:12 Maternal Grandfather Cerebrovascu lar accident [email or web address] Not available 01/2018 15:11:36 Mother Asthma [email or web address] Not availabl e 01/08/2018 13:56:27 Mother Endometriosi s (clinical) [email or web address] Not available 15:50:06 Maternal Grandmother Asthma [email or web address] Not available 13:56:27 Maternal Grandmother Hypertensive disorder [email or web address] Not available 2017 15:11:19 Paternal Grandfather Hypertensive disorder [email or web address] Not available 2017 15:11:19 Paternal Grandfather Cerebrovascu lar accident [email or web address] Not available 01/2018 15:11:36 Notes:Pt's mother liver fail ure- Pt states due to alcohol 12/18/23 Medical History Condition Response Other N High Blood Pressure N Atrial Fibrillation N Blood Diseases N Breast Cancer N Lung Disease N Depression N COPD N Blood Clots N Developmental or Behavioral Disorders N Breast Problem N Premature N Anesthesia Complications N Headaches/Migraines N Anxiety Disorder N Muscle, Joint, or Bone Problems N Vision or Eye Problems N Head Injury/Concussion N Polyps N Infertility N Acid Reflux (GERD) N Cancer N ADHD N Endometriosis N Bladder or Kidney Problems N High Cholesterol N Liver Disease N Headaches N Ear or Hearing Problems N Thyroid Problems N Kidney or Bladder Problems N GI Problems N Acne Y Skin Problems N Eating Disorder N Anemia N Constipation N Heart Attack (PR) N Ovarian Cancer N Diabetes N Bedwetting N Blood Transfusions N Seizures/Epilepsy N Heart Problems/Murmur N Abuse/Domestic Violence N Asthma N Allergies N Hepatitis N Heart Disease N Pre-Eclampsia N Osteoporosis N Heart Failure N Chicken Pox N Autism Spectrum Disorder (ASD) N Gynecological History Statement/Question Response Flow Moderate Date of LMP 08/21/2023 STIs/STDs Yes HPV Vaccine Y Duration of Flow (days) 7 Age at Menarche 11 Current Control Method None Sexually Active? Yes Menses Monthly N Date of Last Pap Smear Sexual Problems? N LMP Approximate Obstetrics History GPAL:G 0 P 0 0 0 0 Type Value Multiple Births 0 Full Term 0 Induced 0 Spontaneous 0 Premature 0 Living 0 Ectopics 0 Total 0 Immunizations Vaccine Type Date Status Note Provider Nam e and Address Organization Details Recorded Time HPV9 2 completed Day Borjas, FINE CRAFT ARTIST, EXTRUSION OPERATOR-C Attn: [address] [place], [place], [address] [place] [address], [place] [facility] 01/28/2023 14:51:51 influenza, split (incl. purified surface antigen) 9 completed Day Borjas, FINE CRAFT ARTIST, EXTRUSION OPERATOR-C Attn: [address] [place], [place], [address] [place] [address], [place] [facility] 01/28/2023 14:51:51 Hep A, pediatric, unspecified formulation 0 completed Day Borjas, FINE CRAFT ARTIST, EXTRUSION OPERATOR-C Attn: [address] [place], [place], [address] [place] [address], [place] [facility] 01/28/2023 14:51:51 Hep A, pediatric, unspecified formulation 9 completed Day Borjas, FINE CRAFT ARTIST, EXTRUSION OPERATOR-C Attn: [address] [place], [address] [place] [address], [place] [facility] 01/28/2023 14:51:51 HPV9 8 completed Not Available [facility] 02:35:53 meningococcal MCV4P 8 completed Not Available [facility] 06/26/2019 02:35:52 Tdap 8 completed Not Available [facility] 06/26/2019 02:41:33 HPV9 9 completed Not Available [facility] 06/26/2019 02:37:03 DTaP 4 completed Cathy Bro[place] [facility] 01/07/2018 15:22:34 DTaP 4 completed Cathy [place] [facility] 01/07/2018 15:22:40 DTaP 4 completed ALYCE Ball[place] [facility] 01/07/2018 15:22:46 DTaP 5 completed Cathy [place] [facility] 01/07/2018 15:22:53 DTaP-IPV 9 completed ALYCE [place] [facility] 01/07/2018 15:23:06 Hib, unspecified formulation 4 completed Cathy [place] [facility] 01/07/2018 15:23:20 Hib, unspecified formulation 4 completed Cathy [place] [facility] 01/07/2018 15:23:28 Hib, unspecified formulation 5 completed ALYCE [place] [facility] 01/07/2018 15:23:36 Hib-Hep B 4 completed [place]athy [place] [facility] 01/07/2018 15:23:48 Hep A, ped/adol, 2 dose 9 completed Day Borjas, FINE CRAFT ARTIST, EXTRUSION OPERATOR-C Attn: [address] [place], [address], [place] [facility] 01/28/2023 14:52:01 Hep A, ped/adol, 2 dose 0 completed Day Borjas, FINE CRAFT ARTIST, EXTRUSION OPERATOR-C Attn: [address] [place], [address], [place] [facility] 01/28/2023 14:52:01 Hep B, adolescent or pediatric 4 completed AL[place]CE [place] [facility] 01/07/2018 15:24:49 Hep B, adolescent or pediatric 4 completed Cathy [place] [facility] 01/07/2018 15:24:58 influenza, unspecified formulation 4 completed [place]athy [place] [facility] 01/07/2018 15:25:26 influenza, unspecified formulation 7 completed ALYCE [place] [facility] 01/07/2018 15:25:33 Influenza, injectable,quadriv alent, preservative free, pediatric 9 completed Day Borjas, FINE CRAFT ARTIST, EXTRUSION OPERATOR-C Attn: [address] [facility], [place], [address], [place] [facility] 01/28/2023 14:52:01 MMR 5 completed [place]athy [place] [facility] 01/07/2018 15:26:07 MMR 9 completed ALYCE [place] [facility] 01/07/2018 15:26:13 pneumococcal conjugate PCV 7 4 [place]CE [place] [facility] 01/07/2018 15:26:29 pneumococcal conjugate PCV 7 4 completed [place]CE [place] [facility] 01/07/2018 15:26:35 pneumococcal conjugate PCV 7 4 [place] [facility] 01/07/2018 15:26:42 pneumococcal conjugate PCV 7 5 [place] [facility] 01/07/2018 15:26:47 IPV 4 [place]CE [place] [facility] 01/07/2018 15:27:04 IPV 4 completed Cathy [place] [facility] 01/07/2018 15:27:10 IPV 5 completed [place]athy [place] [facility] 01/07/2018 15:27:25 varicella 5 completed ALYCE [place] [facility] 01/07/2018 15:27:49 varicella 9 [place] AL[place]CE [place] [facility] 01/07/2018 15:27:56 Past Encounters Encounter ID Performer Location Encounter Start Date Encounter Closed Date Diagnosis/Indication Diagnosis SNOMED-CT Code Diagnosis ICD10 Code Diagnosis Note [id number] MD Koby Freeman (Peds) [address] [place] [address] 01/08/2018 13:31:28 01/12/2018 12:18:57 Well child [id number] Z00.134 [id number] MD Koby Early ([employer]) [address] [address] 01/14/2018 14:36:03 01/16/2018 15:50:21 Irregular periods 43234326 N92.6 Will check hormones and start OCPs. Rx sent to pharmacy. Gilda gonsalves discussed. [id number] MD [facility] ([facility] [address] [place] [address] 05/26/2018 15:48:49 05/27/2018 10:43:04 Missed period 90602819 N92.5 UPT negative, dwp. Contracept [facility] management 762954470 Z30.9 Possibilit y of OCPs taking away the period d/w pt. Pt. and her father want her to change to a different form of control. control options discussed. Pt. wants the Mirena IUD. Benefits, risks, and alternativ es to Mirena IUD insertion d/w pt. Pt. expressed understand ing. All pt. questions answered. UPT was negative today. RTO 2 weeks for repeat UPT and MIrena IUD insertion. Arch applicatio n filled out, given. [id number] MD [facility] [address] [place] [address] 07/15/2018 15:54:49 07/16/2018 13:06:16 Active or passive immunization [id number] Z23 [id number] [facility] [address] [place] [address] 02/23/2019 16:00:53 02/24/2019 12:16:33 Oral contraceptive prescribed 683961471 Z30.011 control options discussed. Pt. wants pills. Rx sent to pharmacy. Gilda gonsalves discussed. [id number] MD [facility] [address] [facility] [place] [address] 07/20/2019 10:21:50 07/21/2019 08:44:25 Dysuria 26470304 R30.9 UA negatve, dwp. Dehydratio n discussed. Surveillan ce of oral contraception 519945711 Z30.41 Will increase estrogen in OCP, dwp. Rx sent. Gilda gonsalves discussed. [id number] MD [facility] [address] [place] [address] 03/01/2020 15:33:00 03/02/2020 08:26:36 Contraception care management 357150980 Z30.9 control options discussed. Pt. wants the Depo shot. RTO for UPT and then 2 weeks later for repeat UPT and Depo shot, dwp. [id number] MD [facility] [address] [place] [address] 03/08/2020 11:37:39 03/10/2020 09:06:22 Contraception care management 150787867 Z30.9 control options discussed. Pt. wants the Depo shot. UPT is negative today. Rx sent to pharmacy. Instructio ns discussed. RTO 2 weeks for repeat UPT and Depo shot. [id number] [facility] [address] [place] [address] 03/22/2020 11:44:05 03/27/2020 07:28:55 Contraception care management 233742282 Z30.9 control options discussed. Pt. wants the Depo shot. UPT is negative today. Rx sent to pharmacy. Instructio ns discussed. RTO 2 weeks for repeat UPT and Depo shot. Gonococcal cervicitis 23 7929226 A54.03 Diagnosis d/w pt. Rx sent to pharmacy. Instructio ns discussed. Pt. instructed to have her partner(s) tested and treated. No sex until negative OLLI. RTO 3 weeks for LOLI. Chlamydial vulvovaginitis 705030161 A56.02 Diagnosis d/w pt. Ceftriaxon e shot discussed, given. Pt. instructed to have her partner(s) tested and treated. No sex until negative LOLI. RTO 3 weeks for LOLI. Bacterial vaginosis 4197 11069 N76.0 Diagnosis d/w pt. Rx sent to pharmacy. Instructio ns discussed. Venereal d isease screening 795917397 Z11.3 Vaginal culture was negative for trichomona s, dwp. STD panel was completely negative. Individual test results dwp. [id number] MD [facility] [address] [place] [address] 04/12/2020 10:04:51 04/13/2020 08:36:51 Gonococcal cervicitis 516210330 A54.03 LOLI sent. Telephone visit 1 week for results Chlamydial vulvovaginitis 509799253 A56.02 LOLI sent. Telephone visit 1 week for results. [id number] MD Koby Early ([employer]) [address] [place] [address] 04/19/2020 08:08:06 04/20/2020 11:20:25 Gonococcal cervicitis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
--- OUTSIDE RECORDS SUMMARY | 2024-11-13 10:54 | XMS_ITS ---
Author Organization [facility] Address [address] [place] [address] Care Team Providers Care Watershed Program Manager Name Role Phone [facility], [facility], [facility] Unavailable [phone] REASON FOR VISIT f/up labs Encounters Encounter Location Date Provider Diagnosis [facility] [address] [place] [address] 10/30/2023 [facility] Plan Of Treatment No Information Progress Notes * Laura KAISEROB:2005 (19 yo F)Acc No.[id number]:10/30/2023 Progress Notes Patient: Penny BRADEN Provider: Chris MILLER :2005 A ge:18 Y S ex:Female Date:10/30/2023 Phone: Address:[facility] [address] [place] [facility] Subjective: * Chief Complaints: * 1 . F/up labs. * Medical History: Objective: * Vitals: Assessment: Plan: * Treatment: * Billing Information: * Visit Code: * Procedure Codes: * Electronic signature of [facility] on 11/13/2024 at 11:53 AM EDT Sign off status: Pending * Provider: Chris JUNG [place] Date: 10/30/2023 Generated for Lesa stanford/Jose/Mackitting on: 11/13/2024 11:53 AM EDT
--- OUTSIDE RECORDS SUMMARY | 2024-11-13 10:54 | XMS_ITS ---
Author Organization [facility] Address [address] [place] [address] Care Team Providers Care Director Script Name Role Phone [facility], [facility] Unavailable [phone] REASON FOR VISIT f/up URI Encounters Encounter Location Date Provider Diagnosis [facility] [address] [place] [address] 08/05/2023 [facility] Plan Of Treatment No Information Progress Notes * Laura KAISEROB:2005 (19 yo F)Acc No.[id number]:08/05/2023 Progress Notes Patient: Penny BRADEN Provider: Chris MILLER :2005 A ge:17 Y S ex:Female Date:08/05/2023 Phone: [facility] Subjective: * Chief Complaints: * 1 . f/up URI. * Medical History: Objective: * Vitals: Assessment: Plan: * Treatment: * Billing Information: * Visit Code: * Procedure Codes: * Electronic signature of [facility] on 11/13/2024 at 11:53 AM EDT Sign off status: Pending * Provider: Chris JUNG [facility] Date: 08/05/2023 Generated for Lesa stanford/Jose/Mackitting on: 11/13/2024 11:53 AM EDT
[2024-11-13 11:02] VITALS: BP 112/75; PULSE 93; RESP 16; TEMP 36.9; O2SAT 100
--- NOTE | 2024-11-13 11:34 | ED_ITS ---
HPI - General Adult General Chief complaint: Headache Stated complaint: Headache Source: patient Mode of arrival: ambulatory Limitations: no limitations History of Present Illness HPI narrative: Patient presents for evaluation headache for the last 3 months. Symptoms are in the frontal and bilateral temporal regions. Pain is dull, 7/10 in severity, and without modifying factors. She denies any photophobia, nausea, vomiting or phonophobia. She is not taking any medications to assist with her symptoms. Related Data Home Medications ?Medication ?Instructions ?Recorded ?Confirmed ?Last Taken ?Type levonorgestrel 120 mcg-e.estradiol patch 11/13/24 Unknown History 30 mcg/24 hr weekly transderm patch (Twirla) Allergies Allergy/AdvReac Type Severity Reaction Status Date / Time No Known Allergies Allergy Verified 11/13/24 11:13 Review of Systems Review of Systems: CONSTITUTIONAL: Denies fever, chills, or sweats. EYES: Denies visual changes, redness, or discharge. ENT: Denies rhinorrhea, congestion, sore throat, or otalgia. CARDIOVASCULAR: Denies chest pain, palpitations, or edema. RESPIRATORY: Denies cough or dyspnea. GASTROINTESTINAL: Denies abdominal pain, nausea, vomiting, or diarrhea. GENITOURINARY: Denies dysuria or hematuria. SKIN: Denies rash or itching. MUSCULOSKELETAL: Denies back pain, joint pain, or myalgia. NEUROLOGIC: Reports headache. Denies numbness, dizziness, or weakness. PSYCHIATRIC: Denies anxiety or depression. [facility] Past Medical History Medical History No pertinent past medical history Surgical History Surgical History No pertinent past surgical history Family History Family History Mother Family history non-contributory Social History Social History Smoking status: Current every day smoker Tobacco type: e-cigarettes/vaping Alcohol intake: current Alcohol use details: social Substance use: current Substance use type: marijuana Gender identity (if verbalized by the patient): Female Sexual Orientation (if Verbalized by the Patient): Straight or Heterosexual Spiritual care concerns: No Exam Narrative: GENERAL: Well-appearing, well-nourished, and in no acute distress. HEAD: Normocephalic, atraumatic. EYES: PERRLA and EOMI. ENT: Nares clear, no rhinorrhea or epistaxis. Mucous membranes moist. Orop harynx without tonsillar hypertrophy exudate or other lesions. Bilateral TMs pearly sweeney nonbulging NECK: Supple. No adenopathy or masses. No carotid bruits or JVD CHEST: Clear to auscultation. No respiratory distress. No wheezes rales or rhonchi HEART: Regular rate and rhythm. No murmur heard. Normal peripheral pulses. ABDOMEN: Soft, nontender, nondistended, normal active bowel sounds. EXTREMITIES: Normal range of motion. No edema. SKIN: Warm, dry, no rash. NEURO: No focal deficits. Alert and oriented x3. PSYCH: Normal mood and affect. Course Course Emergency Course: This is a 19 yr old female who presented for evaluation of a headache. Symptoms consistent with temporal headache. No red flag signs warranting neuroimaging. Advised she follow up with PCP and go to the ER for worsening symptoms. Pt in agreement with plan of care. Level of Care: Express Care Visit Vital Signs Vital signs: Vital Signs Temperature 36.9 C 11/13/24 11:02 Pulse Rate 93 11/13/24 11:02 Respiratory Rate 16 11/13/24 11:02 Blood Pressure 112/75 11/13/24 11:02 Pulse Oximetry 100 11/13/24 11:02 Oxygen Delivery Room Air 11/13/24 11:02 Temperature 36.9 C 11/13/24 11:02 Pulse Rate 93 11/13/24 11:02 Respiratory Rate 16 11/13/24 11:02 Blood Pressure 112/75 11/13/24 11:02 Pulse Oximetry 100 11/13/24 11:02 Oxygen Delivery Room Air 11/13/24 11:02 Medical Decision Making Vital Signs Vital Signs: Vital Signs Temperature 36.9 C 11/13/24 11:02 Pulse Rate 93 11/13/24 11:02 Respiratory Rate 16 11/13/24 11:02 Blood Pressure 112/75 11/13/24 11:02 Pulse Oximetry 100 11/13/24 11:02 Oxygen Delivery Room Air 11/13/24 11:02 Temperature 36.9 C 11/13/24 11:02 Pulse Rate 93 11/13/24 11:02 Respiratory Rate 16 11/13/24 11:02 Blood Pressure 112/75 11/13/24 11:02 Pulse Oximetry 100 11/13/24 11:02 Oxygen Delivery Room Air 11/13/24 11:02 Discharge Plan Discharge Clinical Impression: Tension headache Patient Disposition: Home Condition: Stable Instructions: Antibiotic Form, Acute Headache (ED) Patient Language: Hungarian Prescriptions: New fzrmjvuvgk-tcqeaykloezfj-fwmz [Fioricet] 50-300-40 mg capsule 1 cap PO Q8H PRN (Reason: pain) Qty: 10 0RF No Action Twirla 120-30 mcg/24 hr patch weekly Follow-up/Referrals: Rebeka Echavarria DO [Physician] - Time of Disposition: 11:26
== END 2024-11-13 11:30 | disposition home or self-care (01) ==
PROVIDERS: Emergency Provider Nurse Practitioner
DX: G44.209 Tension-type headache, unspecified, not intractable (principal); F17.290 Nicotine dependence, other tobacco product, uncomplicated; F12.90 Cannabis use, unspecified, uncomplicated
CPT/HCPCS: 99213; G0463

== ENCOUNTER 2025-03-07 09:38 | Emergency (ER) | payer OTHER, SELFPAY ==
--- OUTSIDE RECORDS SUMMARY | 2023-10-30 11:45 | XMS_ITS ---
Author Organization [facility] Address [address] [place] [address] Care Team Providers Care Travertine Installer Name Role Phone [facility], [facility] Unavailable [phone] REASON FOR VISIT f/up labs Encounters Encounter Location Date Provider Diagnosis [facility] [address] [place] [address] 10/30/2023 [facility] Plan Of Treatment No Information Progress Notes * Laura KAISEROB:2005 (19 yo F)Acc No.[id number]:10/30/2023 Progress Notes Patient: Penny BRADEN Provider: Chris MILLER :2005 A ge:18 Y S ex:Female Date:10/30/2023 Phone: Address:[facility] [address] [facility] Subjective: * Chief Complaints: * 1 . F/up labs. * Medical History: Objective: * Vitals: Assessment: Plan: * Treatment: * Billing Information: * Visit Code: * Procedure Codes: * Electronic signature of [facility] on 03/07/2025 at 11:06 AM EDT Sign off status: Pending * Provider: Chris JUNG [facility] Date: 10/30/2023 Generated for Lesa stanford/Jose/Mackitting on: 03/07/2025 11:06 AM EDT
[2025-03-07 09:45] VITALS: BP 106/79; PULSE 113; RESP 20; TEMP 36.7; O2SAT 98
--- NOTE | 2025-03-07 09:56 | ED.URI ---
HPI - URI/Sore Throat General Chief Complaint: Upper Respiratory Infection Stated Complaint: Nasal Congestion/Cough Time Seen by Provider: 03/07/25 10:13 Source: patient and RN notes reviewed Mode of arrival: ambulatory Limitations: no limitations History of Present Illness HPI Narrative: 19-year-old female presents with concern of for nausea, 1 episode of vomiting, nasal congestion, drainage and cough. She denies taking any vqrp-ucv-ofviyxq medications. She reports general malaise. MD elicited complaint: sore throat Related Data Home Medications ?Medication ?Instructions ?Recorded ?Confirmed ?Last Taken ?Type levonorgestrel 120 mcg-e.estradiol patch 11/13/24 12/21/24 Unknown History 30 mcg/24 hr weekly transderm patch (Twirla) Allergies Allergy/AdvReac Type Severity Reaction Status Date / Time No Known Allergies Allergy Verified 03/07/25 09:53 Review of Systems Review of Systems: CONSTITUTIONAL: Denies malaise, chills, sweats, or fever. EYES: Denies visual changes, redness, or discharge. ENT: Reports rhinorrhea, congestion. Denies sinus pain, otalgia and sore throat. CARDIOVASCULAR: Denies chest pain, palpitations, or edema. RESPIRATORY: Reports cough. Denies dyspnea. GASTROINTESTINAL: Denies abdominal pain, diarrhea. Reports nausea, vomiting SKIN: Denies rash or itching. MUSCULOSKELETAL: Denies myalgia. NEUROLOGIC: Denies headache. All systems reviewed & are unremarkable except as noted in HPI and below PMFSH Past Medical History Medical History (Updated 03/07/25 @ 10:20 by Ela Levine NP) IBS (irritable bowel syndrome) GERD (gastroesophageal reflux disease) Anemia Anxiety Surgical History Surgical History No pertinent past surgical history Family History Family History (Updated 12/21/24 @ 15:34 by Betty Elizabeth CMA) Mother Depression Heart disease Hypertension Grandparent Breast cancer Diabetes mellitus Heart disease Hypertension Father Depression Other Cerebrovascular accident Social History Social History (Updated 12/21/24 @ 15:36 by Betty Elizabeth CMA) Smoking status: Current every day smoker Tobacco type: e-cigarettes/vaping Alcohol intake: current Alcohol use details: social Substance use: current Substance use type: marijuana Do You Feel Safe in your Home?: Yes Lack of Transportation: No Lack of Food: Never True Current Housing: I Have Housing Concerned About Future Housing: No Difficulty Paying Gas/Electric Bills: No Difficulty Paying for Meds: No Currently Unemployed: No Education: High School Diploma/GED Difficulty w/ Childcare or Family Care: No Gender identity (if verbalized by the patient): Female Sexual Orientation (if Verbalized by the Patient): Straight or Heterosexual Spiritual care concerns: No Comments At time of signature, agree with nursing past medical, surgical, social and family history. There is no relevant family history pertinent to the presenting complaint Exam Narrative: GENERAL: Well-appearing, well-nourished, and in no acute distress. HEAD: Normocephalic EYES: PERRLA, conjunctivae clear ENT: Nares clear. Mucous membranes moist. TM pearly sweeney with sharp light reflex bilaterally; no tragal tenderness. Oropharynx not erythematous without lesions. Tonsils not enlarged and without exudate, no drooling, no hoarseness, no trismus, uvula midline. NECK: Supple. No lymphadenopathy CHEST: Clear to auscultation, breath sounds equal. No wheezing, rhonchi, rales, or stridor. No respiratory distress, speaks in full sentences. HEART: Regular rate and rhythm. No murmur heard. SKIN: Warm, dry, no rash. NEURO: Alert and oriented x3. PSYCH: Normal mood and affect Course Course Emergency Course: Patient is aware of diagnosis, understands and agrees to treatment plan. Anticipatory guidance given. Patient agrees to follow-up as directed and is aware of reasons to seek care at the emergency department. Portions of this record may have been created with voice recognition software Level of Care: Express Care Visit Vital Signs Vital signs: Reviewed. MDM - URI/Sore Throat MDM Narrative Medical decision making narrative: Differential diagnosis considered: Landa virus, strep pharyngitis, allergic rhinitis, upper respiratory tract infection, sinusitis, rhinosinusitis, nasopharyngitis. viral pharyngitis, otitis media, otitis externa, pneumonia, bronchitis, viral cough syndrome, viral syndrome, and influenza. Exam findings show no acute concerns or changes; patient is non-toxic appearing and is in no distress. Patient is appropriate for outpatient treatment and follow-up. Lab Data Attestation: I reviewed the patient's lab results. Critical Care Time Critical Care Time Critical Care Time: No Discharge Plan Discharge Clinical Impression: Acute viral syndrome Patient Disposition: Home Condition: Stable Instructions: Viral Syndrome (ED) Additional Instructions: Your rapid COVID and flu tests are negative -Take strict precautions to prevent the spread of your virus. Be diligent about covering your cough (even when you are alone) and washing your hands frequently. -You may contagious until you have been symptom and/or fever free for 24 hours without fever reducing medicine -Alternate Ibuprofen and Tylenol for pain and fever relief (per package directions) -Drink plenty of fluid - drink fluid with electrolytes such as Gatorade or other oral re-hydration solution. Avoid caffeine, which can make dehydration worse. -Get plenty of rest to help your body heal. -Use a cool mist humidifier for chest and nasal congestion. -Eat RAW honey or use cough drops to ease throat discomfort -Do not smoke or expose children to secondhand smoke -Wash your hands frequently. -Please follow-up with your primary care doctor in the next 1-2 days if your symptoms do not improve. -If you have any worsening of symptoms or any other concerns please go to the ED immediately. -Please take medications as prescribed and continue taking your home medications as usual. Patient Language: Albanian Prescriptions: New pseudoephedrine HCl [12 Hour Decongestant] 120 mg tablet extended release 120 mg PO Q12H PRN (Reason: nasal congestion) Qty: 20 0RF ondansetron 4 mg tablet,disintegrating 4 mg PO Q6H PRN (Reason: nausea and vomiting) Qty: 6 0RF ipratropium bromide 21 mcg (0.03 %) spray,non-aerosol 2 spray NASAL TID PRN (Reason: nasal drainage) Qty: 30 0RF Rx Instructions: administer into each nostril No Action Twirla 120-30 mcg/24 hr patch weekly Follow-up/Referrals: Kaity Fink, RN [Primary Care Provider, Nursing] Stand Alone Forms: Work/School Release IP Time of Disposition: 10:22
--- OUTSIDE RECORDS SUMMARY | 2025-03-07 10:06 | XMS_ITS | Clinical Summary ---
Author Organization [facility] Address [address] [place] [address] Care Team Providers Care Drapery Examiner Name Role Phone Unavailable Primary Care Provider Unavailabl e Source Comments [facility],non-owned Affiliates and Associated Physician Practices is amultiple site organization consisting of ambulatory clinics and hospital sitesin [place], [place], [place]. This disclosure is being madepursuant to the Care Everywhere program and may not contain all information available regarding this patient. Last updated 18.Ostrovok Allergies No known active allergies Medications * [...] medical care, and heating? Somewhat hard 12/23/2023 [facility] [place] of Occupat ional Health - Occupational Stress [...] place to sleep or slept in a group home (including now)? 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 Gender Identity Not on file Sexual Orientation [...] Health Maintenance Due Date Last Done Comments HIV SCREENING 10/20/2018 HPV VACCINE (1 - 3-dose series) 10/20/2018 CHLAMYDIA/GONORRHEA SCREENING 2019 MENINGOCOCCAL (Group B) VACCINE SHARED DECISION-MAKING (1 of 2 - Standard) 2019 HEPATITIS C SCREENING 10/16/2021 DTAP/TDAP/TD VACCINES (1 - Tdap) 10/20/2022 HEPATITIS B VACCINE (1 of 3 - 19+ 3-dose series) 10/20/2022 PNEUMOCOCCAL VACCINE (1 of 2 - PCV) 10/20/2022 DEPRESSION SCREENING 06/09/2024 PAP SMEAR 10/20/2024 COVID-19 VACCINE (1 - 2023-2 5 season) 2025 INFLUENZA VACCINE (#1) 2025 9, 05/04/2007, 04/25/2004 ZOSTER VACCINE (1 of 2) 10/20/2053 HIB VACCINE Aged Out No longer eligi ble based on patient's age to complete this topic MENINGOCOCCAL GROUPS A/C/Y/W VACCINE Aged Out No longer eligible b ased on patient's age to complete this topic Insurance [facility] [place] [address] Advance Directives * Full Code (Latest Code Status on File) Date Activated Date Inactivated Comments 12/23/2023 4:07 AM 12/27/2023 7:56 PM
--- OUTSIDE RECORDS SUMMARY | 2025-03-07 10:06 | XMS_ITS | Patient Health Record ---
Author Organization [facility] Address [address] [place] [address] Care Team Providers Care Balance Staff Staker Name Role Phone Paloma Bryson Primary Care Provider Allergies No Known Allergies Reason For Referral No Information Medications Medication SIG (Take, Route, Fr equency, Duration) Notes Start Date End Date Status risperiDONE 1 MG 1 tablet Orally twic e a day; Duration: 30 days Active Xulane 150-35 MCG/24HR as [...] Status Risk Notes Problem Posttraumatic stress disorder (85115466) PTSD (post-traumat ic stress disorder) (F43.10) Active confirmed Problem Bipolar 2 disorder (94400977) Bipolar 2 disorder (F31.81) Active confirmed Plan Of Treatment No Information Insurance Providers Payer Name Payer Address Payer Phone Subscriber Number Group Number Insured Name Patient Relationship to Insured Coverage Start Date Coverage End Date [employer] [address] [place] [address] [id number] Penny Kaiser Self - patient is the insured 3 [employer] [address] [place] [address] [id number] Penny Kaiser Self - patient is the insured 3 Medical (General) History Surgical History Surgery Date(Month/Year) skin graft ear tubes (both) x2
--- OUTSIDE RECORDS SUMMARY | 2025-03-07 10:06 | XMS_ITS | Clinical Summary ---
Author Organization [facility] Address [address] [place] [address] Phone Care Team Providers Care Senior Portfolio Manager Name Role Phone Aleks Kaitycristian Garcia APRN, REEL CUTTER Primary Care Provider + Ramos Ahn MD Unavailable [phone] Allergies No known active allergies Medications Fhnbkavcny-BHFL-I affeine 50-300-40 MG Capsule Take 1 Capsule by mouth if needed for Other. 5 Active folic acid (FOLVITE) 1 MG TabletIndications :Folate deficiency Take 1 Tablet by mouth daily. 30 Tablet 5 Active Twirla 120-30 MCG/24HR PATCH WEEKLY APPLY 1 PATCH TOPICALLY EVERY WEEK FOR 21 DAYS Active QUEtiapine Fumarate (SEROquel) 50 MG TabletIndications :Epigastric pain,History of Helicobacter pylori infection Take 1 Tablet by mouth nightly. 5 Active Active Problems No known active problems Encounters Date Type Department Care Team Description 12/17/2024 Travel 12/16/2024 10:00 AM CDT Office Visit [facility] Medical [facility] - Gastroenterology [facility] [address] [place] [address] Ramos Ahn MD Epigastric pain (Primary Dx); History of Helicobacter pylori infection Discharge Disposition: Discharged to home or Selfcare 12/16/2024 Telephone [facility] - Gastroenterology - [place] [address] [place] [address] Branch, Ramos Sue MD 12/16/2024 Travel from Last 3 Months Immunizations Immunization Administration Dates Next Due DTAP [...] Not Answered Alcohol Use Standard Drinks/Week Comments Not Currently 0 (1 standard drink = 0.6 oz pur e alcohol) PHQ-2 Answer Date Recorded Total Score - Questions 1-9 4 11/07 Comments No Sex and Gender Information Value Date Recorded Sex Assigned at Not on file Legal Sex Female 12:25 AM CDT Gender Identity Not on file Sexual Orientation Not on file Last Filed Vital Signs Vital Sign Reading Time Taken Comments Blood Pressure 130/90 12/16/2024 10:05 AM CDT Pulse 93 12/16/2024 10:05 AM CDT Temperature 36.7 C (98 F) 12/16/2024 10:05 AM CDT Respiratory Rate 16 12/16/2024 10:05 AM CDT Oxygen Saturation 99% 12/16/2024 10:05 AM CDT Inhaled Oxygen Concentration - - Weight 72.4 kg (159 lb 9.6 oz) 12/16/2024 10:05 AM CDT Height 170.2 cm (5' 7) 12/16/2024 10:05 AM CDT Body Mass Index 25 12/16/2024 10:05 AM CDT Plan of Treatment Health Maintenance Due Date Last Done Comments Meningococcal B Immunization (1 of 2 - Standard) 2019 Pap Smear 10/20/2024 Influenza Immunization (#1) 02/07/202502/07, 05/04/2007, 04/25/2004 SARS-COV-2 Immunization ( - season) 2025 DTaP/Tdap/Td Immunization (7 - Td or Tdap) [...] Papillomavirus (HPV) Immunization Completed 12/27/2021, 07/15/2018, 01/08/2018 Hepatitis C Virus (HCV) Screening Completed 11/17/2024 Rotavirus Immunization Aged Out No lo nger eligible based on patient's age to complete this topic Procedures Procedure Name Priority Date/Time Associated Diagnosis Comments HEPATITIS C ANTIBODY Routine 11/17/2024 4:44 PM CDT Need for hepatitis C screening test from Last 3 Months or Most Recently Relevant to Health Maintenance Results * HEPATITIS C ANTIBODY (11/17/2024 4:44 PM CDT) hepatitis C antibody 0.12 <1 S/CO 11/18/2024 2:26 PM CDT [facility] Comment: Signal/Cutoff ratio < 0.79 is Nondetected Signal/Cutoff ratio 0.80-0.99 is Grayzone Signal/Cutoff ratio > 0.99 is Detected Supplemental assays are recommended if signal/cutoff ratio is >/=1.00. Signal/cutoff ratio result >/= 5.00 is 97% predictive of positivity for recombinant immunoblot assay (RIBA) and will be reported to the [place] Department of Public Health as required. Blood Venipuncture / Unknown 11/17/2024 4:44 PM CDT 11/17/2024 4:55 PM CDT us Kaity Fink TECHNOLOGY SUPPORT ANALYST, REEL CUTTER CHEMISTRY ORDERABLES Fin al Result [facility] [address] [place] [address], [place] from Last 3 Months or Most Recently Relevant to Health Maintenance Insurance MEDICAID [employer] Care Teams Senior Portfolio Manager Relationship Specialty Start Date End Date Kaity Fink APRN, REEL CUTTER [address] [place] [address] PCP - General Advanced Practice Nurse 11/17/24 Ramos Ahn MD [address] [address] Consulting Physician General Surgery 12/16/24
--- OUTSIDE RECORDS SUMMARY | 2025-03-07 10:06 | XMS_ITS | Clinical Summary ---
Author Organization [facility] Address [address] [place] [address] Care Team Providers Care Editing Clerk Name Role Phone No, Physician Primary Care Provider [phone] Allergies No known active allergies Medications medroxyPROGESTERon [...] on file Legal Sex Female 9:53 AM SAP MOBILITY ARCHITECT Gender Identity Not on file Sexual Orientation [...] Comments Blood Pressure 118/72 04/18/2022 2:18 PM SAP MOBILITY ARCHITECT Pulse - - Temperature - - Respiratory Rate - - Oxygen Saturation - - Inhaled Oxygen Concentration - - Weight 58.9 kg (129 lb 12.8 oz) 04/18/2022 2:18 PM SAP MOBILITY ARCHITECT Height 170.2 cm (5' 7) 12/27/2021 3:26 PM CDT Body Mass Index 20.33 12/27/2021 3:26 PM CDT Plan of Treatment Health Maintenance Due Date Last Done Comments Cervical Cancer Screening 2003 Chlamydia and Gonorrhea (GC/CT) Screening 2003 Depression Screening 2003 Hepatitis C Screening 2003 Pneumococcal vaccine <65 (1 of 1 - PPSV23, PCV20, or PCV21) 10/20/2009 10/24/2004, 04/25/2004, 02/21/2004, Additional history exists Meningococcal B Vaccine (1 of 2 - Standard) 2019 Regular Well Visit/Exam 18-64 10/20/2021 Influenza Vaccine (#1) 2025 9, 05/04/2007, 04/25/2004 DTaP/Tdap/Td Vaccine (7 - Td or Tdap) 01/09/2028 01/08/2018, 02/17/2009, 01/25/2005, Additional history exists Hepatitis B Screening Completed 04/25/2004 , 2003, 2003 Varicella Vaccines Completed 02/17/2009, 10/24/2004 Meningococcal Vaccine Aged Out 01/08/2018 No jose kristin eligible based on patient's age to complete this topic HPV Vaccines Completed 12/27/2021, 11/2018, 01/08/2018 Insurance [employer] Care Teams Editing Clerk Relationship Specialty Start Date End Date No, Physician PCP - General 10/03/21
--- OUTSIDE RECORDS SUMMARY | 2025-03-07 10:06 | XMS_ITS | Patient Health Record ---
Author Organization [facility] Address [address] [place] [address] Support Name Relationship Address Phone Penny Kaiser [...] 8 hrs as needed for cough and congestion; Duration: 7 days 08/02/2023 Unknown Amoxicillin 500 MG 1 capsule Orally jairon ry 8 hrs; Duration: 7 days 08/02/2023 Unknown hydrOXYzine HCl 25 MG 1 tablet as needed for anxiousness Orally Every 6 hours; Duration: 14 days 10/16/2023 Active Social History Tobacco Use: Social History Observation Description Date Details (start date - stop date) Never Smoker NA - NA Tobacco Use/Smoking Question Answer Notes Are you a nonsmoker Plan Of Treatment Pending Test Test Name Order Date COMPREHENSIVE METABOLIC PANEL (69714) CBC (INCLUDES DIFF/PLT) (6399) THYROID PANEL WITH TSH (7444) 10/16/2023 Insurance Providers Payer Name Payer Address Payer Phone Subscriber Number Group Number Insured Name Patient Relationship to Insured Coverage Start Date Coverage End Date [employer] of [place] [address] [address] [place] [phone] [id number] AwildaSiddharthPenny Self - patient is the insured Medical (General) History Medical History History ICD Code Undiagnosed/Diagnosed Manic Bipolar Diso rder 16-17 years old honestly OCD Same day I was told some thing I wasn't and I knew that already I'm not stupid I promise you that they make people feel dumb and they know that
[2025-03-07 10:10] LABS: EDCOVIDSCREEN Negative (Negative); EDINFLUASCREEN Negative (Negative); EDINFLUBSCREEN Negative (Negative)
== END 2025-03-07 10:28 | disposition home or self-care (01) ==
PROVIDERS: Emergency Provider Nurse Practitioner
DX: B34.9 Viral infection, unspecified (principal); Z20.822 Contact with and (suspected) exposure to COVID-19; F17.290 Nicotine dependence, other tobacco product, uncomplicated; F12.90 Cannabis use, unspecified, uncomplicated; K21.9 Gastro-esophageal reflux disease without esophagitis
CPT/HCPCS: 87426; 87804; 99213; G0463

== ENCOUNTER 2025-03-12 15:21 | Emergency (ER) | payer OTHER, SELFPAY ==
--- OUTSIDE RECORDS SUMMARY | 2023-10-30 11:45 | XMS_ITS ---
Author Organization [facility] Address [address] [place] [address] Care Team Providers Care Mechanical Technologist Name Role Phone [facility] Unavailable [phone] REASON FOR VISIT f/up labs Encounters Encounter Location Date Provider Diagnosis [facility] [address] [place] [address] 10/30/2023 [facility] Plan Of Treatment No Information Progress Notes * Laura KAISEROB:2005 (19 yo F)Acc No.[id number]:10/30/2023 Progress Notes Patient: Penny BRADEN Provider: Chris MILLER :2005 A ge:18 Y S ex:Female Date:10/30/2023 Phone: Address:[facility] [address] [facility] Subjective: * Chief Complaints: * 1 . F/up labs. * Medical History: Objective: * Vitals: Assessment: Plan: * Treatment: * Billing Information: * Visit Code: * Procedure Codes: * Electronic signature of [facility] on 03/12/2025 at 03:55 PM EDT Sign off status: Pending * Provider: Chris JUNG [facility] Date: 0 10/30/2023 Generated for Lesa stanford/Jose/eTallyitting on: 1 03:55 PM EDT
--- OUTSIDE RECORDS SUMMARY | 2025-03-12 15:24 | XMS_ITS | Patient Health Record ---
Author Organization [facility] Address [address] [place] [address] Care Team Providers Care Hot Dog Vendor Name Role Phone Paloma Bryson Primary Care [...] Status Risk Notes Problem Posttraumatic stress disorder (04994537) PTSD (post-traumat ic stress disorder) (F43.10) Active confirmed Problem Bipolar 2 disorder (93303427) Bipolar 2 disorder (F31.81) Active confirmed Plan Of Treatment No Information Insurance Providers Payer Name Payer Address Payer Phone Subscriber Number Group Number Insured Name Patient Relationship to Insured Coverage Start Date Coverage End Date [employer] [address] [place] [address] [id number] Penny Kaiser Self - patient is the insured 3 [employer] [address] [place] [phone] [id number] Penny Kaiser Self - patient is the insured 3 Medical (General) History Surgical History Surgery Date(Month/Year) skin graft ear tubes (both) x2
--- OUTSIDE RECORDS SUMMARY | 2025-03-12 15:25 | XMS_ITS | Clinical Summary ---
Author Organization [email or web address] Address [address] [place] [address] Care Team Providers Care Drying Oven Tender Name Role Phone Unavailable Primary Care Provider Unavailabl e Source Comments [email or web address],non-owned Affiliates and Associated Physician Practices is amultiple site organization consisting of ambulatory clinics and hospital sitesin [place], [place], [place] and [place]. This disclosure is being madepursuant to the Care Everywhere program and may not contain all information available regarding this patient. Last updated 18.KRAFTWERK Allergies No known active allergies Medications * [...] medical care, and heating? Somewhat hard 12/23/2023 [facility] [place] of Occupat ional Health - Occupational Stress [...] place to sleep or slept in a fci (including now)? No 12/23/2023 Comments No Sex and Gender Information Value Date Recorded Sex Assigned at Not on file Legal Sex Female 11:17 AM MATERIAL HANDLER FLOORPERSON Gender Identity Not on file Sexual Orientation [...] patient's age to complete this topic Insurance [facility] [place] [address] Advance Directives * Full Code (Latest Code Status on File) Date Activated Date Inactivated Comments 12/23/2023 4:07 AM 12/27/2023 7:56 PM
--- OUTSIDE RECORDS SUMMARY | 2025-03-12 15:25 | XMS_ITS | Data Portability ---
Author Organization [facility] Madiha [facility] Address [address] [place] [address] Care Team Providers Care Trimming Assembler Name Role Phone RADHA DENISE [facility] Medicine [facility] Psychiatrist Assessment No assessment recorded. Plan of Treatment Reminders Order Date Submit Date Provider Last Modified By Organization Details Last Modified Time Details Appointments None recorded. Lab test, urine 2024 025 [email or web address] In-Office Order, Internal Use Only DO Not Attach Compendium DO Not Attach Compendium, Do Not Delete/merge, [id number] 5 16:31:57 chlamydia trachomatis + neisseria gonorrhoeae + trichomonas vaginalis rRNA panel, NATALIYA+probe 2024 025 [facility], [address] [place] [address] [address], [address], 5 07:02:20 chlamydia trachomatis + neisseria gonorrhoeae rRNA panel, NATALIYA+probe, nasopharynx 2024 025 [facility], [address] [facility], [facility], [place], [address], 5 07:02:21 urinalysis, dipstick 2022 023 In-Office Order, Internal Use Only DO Not Attach Compendium DO Not Attach Compendium, Do Not Delete/merge, [id number] 3 14:50:35 culture, urine 2022 023 [facility], [address] [facility], [facility], [place], [address], 3 03:08:27 chlamydia trachomatis + neisseria gonorrhoeae + trichomonas vaginalis DNA panel, NATALIYA+probe, unspecified specimen 2022 023 [facility], [address] [facility], [facility], [place], [address], 3 03:08:26 Referral counseling referral - assessed by [facility] while inpatient at [facility]; recommended trauma therapy [address] [facility], [address] [place], [address], 4 15:59:59 psychiatris t referral - assessed by [facility] while inpatient at [facility] [address] [facility], [address] [place], [address], 4 16:00:00 Procedures None recorded. Surgeries None recorded. Imaging None recorded. Medication Orders Twirla 120 mcg-30 mcg/24 hr transdermal patch [address] [facility][id number], [address] [place], [address], 5 16:32:14 aripiprazol e 5 mg tablet [address] [facility][id number], [address] [place], [address], 5 16:09:14 aripiprazol e 10 mg tablet [address] [facility][id number], [address] [place], [address], 5 16:09:11 Macrobid 100 mg capsule [address] [facility][id number], [address] [facility], [place], [address], 12:44:01 Patient TargetsNo targets recorded. Patient Instructions Encounter Date Encounter Id Patient Instructions Last Modified By Organization Details Last Modified Time 01/28/2023 [id number] painful urinatio n (dysuria): care instructions [email or web address] Not available 01/28/2023 14:50:35 learning about mood [...] Counseling Referral for Mood disorder assessed by Kris while inpatient at [facility]; recommended trauma therapy Referring Physician: Radha Denise [facility], Encounter Date: 01/09/2024 Psychiatrist Referral for Mo od disorder assessed by Kris while inpatient at [facility] Referring Physician: Radha Denise [facility], Encounter Date: 01/09/2024 Results Created Date Observation Date Name Description Value Unit Range Abnormal Flag Note LastModifiedBy Organization Detail LastModifiedTime 01/29/2001/30/2023 CT, NG, TRICH VAG BY NATALIYA chlamydia by NATALIYA Negati ve negati ve Not Available [facility] ([facility]) [address] [place], [address], 01/31/2023 03:08:26 01/29/20 23 01/30/2023 CT, NG, TRICH VAG BY NATALIYA gonococcus by NATALIYA Negati ve negati ve Not Available [facility] ([facility]) [address] [place], [address], 01/31/2023 03:08:26 01/29/20 23 01/30/2023 CT, NG, TRICH VAG BY NATALIYA trich vag by NATALIYA Negati ve negati ve Not Available [facility] ([facility]) [address] [facility], [place], [address], 01/31/2023 03:08:26 01/29/20 23 01/30/2023 URINE CULTU RE,CO MPREH ENSIV E urine culture,comp rehensive Final report Not Available [facility] ([facility]) [address] [facility], [place], [address], 01/31/2023 03:08:27 01/29/20 23 01/30/2023 URINE CULTU RE,CO MPREH ENSIV E result 1 Commen t Mixed uroge nital otilia Great er than 100,0 00 colon y formi ng units per mL Not Available [facility] ([facility]) [address] [facility], [place], [address], 01/31/2023 03:08:27 01/29/20 23 01/28/2023 urina lysis , dipst ick Leukocytes Trace Not Available In-Offi ce Order Internal Use Only DO Not Attach Compendium DO Not Attach Compendium, Do Not Delete/merge, [id number] 01/28/2023 14:33:26 01/29/20 23 01/28/2023 urina lysis , dipst ick Nitrite negati ve Not Available In-Office Order Internal Use Only DO Not Attach Compendium DO Not Attach Compendium, Do Not Delete/merge, [id number] 01/28/2023 14:33:26 01/29/20 23 01/28/2023 urina lysis , dipst ick Urobilinogen .2 Not Available In-Of fice Order Internal Use Only DO Not Attach Compendium DO Not Attach Compendium, Do Not Delete/merge, [id number] 01/28/2023 14:33:26 01/29/20 23 01/28/2023 urina lysis , dipst ick Protein Negati ve Not Available In-Office Order Internal Use Only DO Not Attach Compendium DO Not Attach Compendium, Do Not Delete/merge, formerly [facility] 01/28/2023 14:33:26 01/29/20 23 01/28/2023 urina lysis , dipst ick pH 5.0 Not Available In-Office Order Internal Use Only DO Not Attach Compendium DO Not Attach Compendium, Do Not Delete/merge, formerly [facility] 01/28/2023 14:33:26 01/29/20 23 01/28/2023 urina lysis , dipst ick Blood Negati ve Not Available In-Office Order Internal Use Only DO Not Attach Compendium DO Not Attach Compendium, Do Not Delete/merge, formerly [facility] 01/28/2023 14:33:26 01/29/20 23 01/28/2023 urina lysis , dipst ick Specific [place] 1.005 Not Available In-Off ice Order Internal Use Only DO Not Attach Compendium DO Not Attach Compendium, Do Not Delete/merge, formerly [facility] 01/28/2023 14:33:26 01/29/20 23 01/28/2023 urina lysis , dipst ick Ketone Negati ve Not Available In-Office Order Internal Use Only DO Not Attach Compendium DO Not Attach Compendium, Do Not Delete/merge, formerly [facility] 01/28/2023 14:33:26 01/29/20 23 01/28/2023 urina lysis , dipst ick Bilirubin Negati ve Not Available In-Office Order Internal Use Only DO Not Attach Compendium DO Not Attach Compendium, Do Not Delete/merge, formerly [facility] 01/28/2023 14:33:26 01/29/20 23 01/28/2023 urina lysis , dipst ick Glucose Negati ve Not Available In-Office Order Internal Use Only DO Not Attach Compendium DO Not Attach Compendium, Do Not Delete/merge, formerly [facility] 01/28/2023 14:33:26 01/29/20 23 01/28/2023 urina lysis , dipst ick Appearance Clear Not Available In-Offi ce Order Internal Use Only DO Not Attach Compendium DO Not Attach Compendium, Do Not Delete/merge, formerly [facility] 01/28/2023 14:33:26 01/29/20 23 01/28/2023 urina lysis , dipst ick Color Pale Yellow Not Available In-Office Order Internal Use Only DO Not Attach Compendium DO Not Attach Compendium, Do Not Delete/merge, [id number] 01/28/2023 14:33:26 12/22/19 24 12/22/2023 SARS- CoV-2 [...] Detec nguyen) 12/21 7:25 PM CDT [facility] Not Available Not Available 09/28/2024 09:40:52 [...] MINAN TS 12/23 11:56 AM CDT [facility] Not Available Not Available 09/28/2024 09:40:52 12/22/19 24 12/22/2023 Drugs of abuse panel - Urine by Scree n metho d amphetamine [presence] in urine by screen method NON DETECT ED text: non detect ed UR AMPHE TAMIN E NON DETEC NGUYEN NON DETEC NGUYEN 12/21 7:13 PM CDT [facility] Not Available Not Available 09/28/2024 09:40:52 12/22/19 24 12/22/2023 Drugs of abuse panel - Urine by Scree n metho d benzodiazepi valery [presence] in urine NON DETECT ED text: non detect ed UR BENZO DIAZE PINES NON DETEC NGUYEN NON DETEC NGUYEN 12/21 7:13 PM CDT [facility] Not Available Not Available 09/28/2024 09:40:52 12/22/19 24 12/22/2023 Drugs of abuse panel - Urine by Scree n metho d benzoylecgon ine [presence] in urine NON DETECT ED text: non detect ed UR COCAI NE METAB OLITE NON DETEC NGUYEN NON DETEC NGUYEN 12/21 7:13 PM CDT [facility] Not Available Not Available 09/28/2024 09:40:52 12/22/19 24 12/22/2023 Drugs of abuse panel - Urine by Scree n metho d opiates [presence] in urine NON DETECT ED text: non detect ed UR OPIAT ES NON DETEC NGUYEN NON DETEC NGUYEN 12/21 7:13 PM CDT [facility] Not Available Not Available 09/28/2024 09:40:52 12/22/19 24 12/22/2023 Drugs of abuse panel - Urine by Scree n metho d phencyclidin e [presence] in urine NON DETECT ED text: non detect ed UR PHENC YCLID INE NON DETEC NGUYEN NON DETEC NGUYEN 12/21 7:13 PM CDT [facility] Not Available Not Available 09/28/2024 09:40:52 12/22/19 24 12/22/2023 Drugs of abuse panel - Urine by Nicki shirley cannabinoids [presence] in urine DETECT ED text: non detect ed abnormal UR CANNA BINOI D DETEC NGUYEN (A) NON DETEC NGUYEN 12/21 7:13 PM CDT [facility] Not Available Not Available 09/28/2024 09:40:52 12/22/19 24 12/22/2023 Drugs of abuse panel - Urine by Nicki shirley barbiturates [presence] in urine NON DETECT ED text: non detect ed UR RUI TURAT E NON DETEC NGUYEN NON DETEC NGUYEN 12/21 7:13 PM CDT [facility] Not Available Not [...] 10(3) /mcL 12/21 6:32 PM CDT [facility] Not Available Not Available 09/28/2024 09:40:51 12/22/19 24 12/22/2023 CBC W Auto Diffe renti al panel - Blood erythrocytes [#/volume] in blood by automated count 4.18 text: 3.80 - 5.30 10(6)/ mcL RBC 4.18 3.80 - 5.30 10(6) /mcL 12/21 6:32 PM CDT [facility] Not Available Not Available 09/28/2024 09:40:51 12/22/19 24 12/22/2023 CBC W Auto Diffe renti al panel - Blood hemoglobin [mass/volume ] in blood 13.4 g/dL low: 12g/dL high: 15.8g/ dL HEMOG LOBIN (HGB) 13.4 12.0 - 15.8 g/dL 12/21 6:32 PM CDT [facility] Not Available Not Available 09/28/2024 09:40:51 12/22/19 24 12/22/2023 CBC W Auto Diffe renti al panel - Blood hematocrit [volume fraction] of blood by automated count 37.4 % low: 36%hig h: 47% HEMAT OCRIT (HCT) 37.4 36.0 - 47.0 % 12/21 6:32 PM CDT [facility] Not Available Not Available 09/28/2024 09:40:51 12/22/19 24 12/22/2023 CBC W Auto Diffe renti al panel - Blood MCV [entitic mean volume] in red blood cells by automated count 89.5 fL low: 82fLhi gh: 96fL MCV 89.5 82.0 - 96.0 fL 12/21 6:32 PM CDT [facility] Not Available Not Available 09/28/2024 09:40:51 12/22/19 24 12/22/2023 CBC W Auto Diffe renti al panel - Blood MCH [entitic mass] by automated count 32.1 pg low: 26pghi gh: 34pg MCH 32.1 26.0 - 34.0 pg 12/21 6:32 PM CDT [facility] Not Available Not Available 09/28/2024 09:40:51 12/22/19 24 12/22/2023 CBC W Auto Diffe renti al panel - Blood MCHC [entitic mass/volume] in red blood cells by automated count 35.8 g/dL low: 31g/dL high: 36g/dL MCHC 35.8 31.0 - 36.0 g/dL 12/21 6:32 PM CDT [facility] Not Available Not Available 09/28/2024 09:40:51 12/22/19 24 12/22/2023 CBC W Auto Diffe renti al panel - Blood platelets [#/volume] in blood 309 text: 140 - 440 10(3)/ mcL PLATE LET COUNT 309 140 - 440 10(3) /mcL 12/21 6:32 PM [facility] Not Available Not Available 09/28/2024 09:40:51 12/22/19 24 12/22/2023 CBC W Auto Diffe renti al panel - Blood erythrocyte [distwidth] in red blood cells by automated count 13.1 % low: 11.8%h igh: 15.5% RDW 13.1 11.8 - 15.5 % 12/21 6:32 PM CDT [facility] Not Available Not Available 09/28/2024 09:40:51 12/22/19 24 12/22/2023 CBC W Auto Diffe renti al panel - Blood platelet [entitic mean volume] in blood by automated count 11 fL low: 9.7fLh igh: 12.4fL MPV 11.0 9.7 - 12.4 fL 12/21 6:32 PM CDT [facility] Not Available Not Available 09/28/2024 09:40:51 12/22/19 24 12/22/2023 CBC W Auto Diffe renti al panel - Blood neutrophils/ leukocytes in blood by automated count 65.4 % low: 47%hig h: 73% NEUTR OPHIL S 65.4 47.0 - 73.0 % 12/21 6:32 PM CD[facility] Not Available Not Available 09/28/2024 09:40:51 12/22/19 24 12/22/2023 CBC W Auto Diffe renti al panel - Blood lymphocytes/ leukocytes in blood by automated count 26.2 % low: 18%hig h: 42% LYMPH OCYTE S 26.2 18.0 - 42.0 % 12/21 6:32 PM [facility] Not Available Not Available 09/28/2024 09:40:51 12/22/19 24 12/22/2023 CBC W Auto Diffe renti al panel - Blood monocytes/le ukocytes in blood by automated count 6.9 % low: 4%high : 12% MONOC YTES 6.9 4.0 - 12.0 % 12/21 6:32 PM CD[facility] Not Available Not Available 09/28/2024 09:40:51 12/22/19 24 12/22/2023 CBC W Auto Diffe renti al panel - Blood eosinophils/ leukocytes in blood by automated count 0.6 % low: 0%high : 5% EOSIN OPHIL S 0.6 0.0 - 5.0 % 12/21 6:32 PM CDT [facility] Not Available Not Available 09/28/2024 09:40:51 12/22/19 24 12/22/2023 CBC W Auto Diffe renti al panel - Blood basophils/le ukocytes in blood by automated count 0.9 % low: 0%high : 1% BASOP HILS 0.9 0.0 - 1.0 % 12/21 6:32 PM CDT [facility] Not Available Not Available 09/28/2024 09:40:51 12/22/19 24 12/22/2023 CBC W Auto Diffe renti al panel - Blood neutrophils [#/volume] in blood by automated count 5.68 text: 1.60 - 7.70 10(3)/ mcL ABSOL [place] NEUTR OPHIL S 5.68 1.60 - 7.70 10(3) /mcL 12/21 6:32 PM CD[facility] Not Available Not Available 09/28/2024 09:40:51 12/22/19 24 12/22/2023 CBC W Auto Diffe renti al panel - Blood lymphocytes [#/volume] in blood by automated count 2.27 text: 1.30 - 3.20 10(3)/ mcL [place]OL [place] LYMPH OCYTE S 2.27 1.30 - 3.20 10(3) /mcL 12/21 6:32 PM CDT [facility] Not Available Not Available 09/28/2024 09:40:51 12/22/19 24 12/22/2023 CBC W Auto Diffe renti al panel - Blood monocytes [#/volume] in blood by automated count 0.6 text: 0.20 - 1.00 10(3)/ mcL [place] MONOC YTES 0.60 0.20 - 1.00 10(3) /mcL 12/21 6:32 PM CDT [facility] Not Available Not Available 09/28/2024 09:40:51 12/22/19 24 12/22/2023 CBC W Auto Diffe renti al panel - Blood eosinophils [#/volume] in blood by automated count 0.05 text: 0.00 - 0.40 10(3)/ mcL [place] EOSIN OPHIL 0.05 0.00 - 0.40 10(3) /mcL 12/21 6:32 PM CDT [facility] Not Available Not Available 09/28/2024 09:40:51 12/22/19 24 12/22/2023 CBC W Auto Diffe renti al panel - Blood basophils [#/volume] in blood by automated count 0.08 text: 0.00 - 0.10 10(3)/ mcL [place] BASOP HILS 0.08 0.00 - 0.10 10(3) /mcL 12/21 6:32 PM CDT [facility] Not Available Not Available 09/28/2024 09:40:51 12/22/19 24 12/22/2023 CBC W Auto Diffe renti al panel - Blood nucleated erythrocytes /leukocytes [ratio] in blood 0 NRBC PER 100 WBC 0 12/21 6:32 PM CDT [facility] Not Available Not Available 09/28/2024 09:40:51 12/22/19 24 12/22/2023 Salic ylate s [Mass /volu me] in Serum or Plasm a salicylates [mass/volume ] in serum or plasma low: 15mg/d Lhigh: 30mg/d L low SALIC YLATE <5.0 (L) 15.0 - 30.0 mg/dL 12/21 6:59 PM CDT [facility] Not Available Not Available 09/28/2024 [...] mcg/m L 12/21 7:00 PM CDT [facility] Not Available Not Available 09/28/2024 [...] 2.6 mg/dL 12/21 6:59 PM CDT [facility] Not Available Not Available 09/28/2024 [...] <10 <10 mg/dL 12/21 6:59 PM CDT [facility] Not Available Not Available 09/28/2024 [...] 5.000 mIU/L 12/21 7:13 PM CDT [facility] Not Available Not Available 09/28/2024 [...] 145 mmol/ L 12/21 6:59 PM CDT [facility] Not Available Not Available 09/28/2024 09:40:51 12/22/19 24 12/22/2023 Compr ehens sheng metab olic 2000 panel - Serum or Plasm a potassium [moles/volum e] in serum or plasma 3.9 mmol/ L low: 3.5mmo l/Lhig h: 5.1mmo l/L POTAS SIUM 3.9 3.5 - 5.1 mmol/ L 12/21 6:59 PM CDT [facility] Not Available Not Available 09/28/2024 09:40:51 12/22/19 24 12/22/2023 Compr ehens sheng metab olic 1999 panel - Serum or Plasm a chloride [moles/volum e] in serum or plasma 109 mmol/ L low: 98mmol /Lhigh : 107mmo l/L high CHLOR BHARGAVI 109 (H) 98 - 107 mmol/ L 12/21 6:59 PM CD[facility] Not Available 09/28/2024 09:40:51 12/22/19 24 12/22/2023 Compr ehens sheng metab olic 1999 panel - Serum or Plasm a carbon dioxide, total [moles/volum e] in serum or plasma 23 mmol/ L low: 22mmol /Lhigh : 30mmol /L CO2, VENOU S 23 22 - 30 mmol/ L 12/21 6:59 PM CD[facility] Not Available Not Available 09/28/2024 09:40:51 12/22/19 24 12/22/2023 Compr ehens sheng metab olic 1999 panel - Serum or Plasm a anion gap in serum or plasma by calculation 13.9 mmol/ L high: 18mmol /L ANION GAP 13.9 <18.0 mmol/ L 12/21 6:59 PM CD[facility] Not Available Not Available 09/28/2024 09:40:51 12/22/19 24 12/22/2023 Compr ehens sheng metab olic 1999 panel - Serum or Plasm a glucose [mass/volume ] in serum or plasma 72 mg/dL low: 70mg/d Lhigh: 99mg/d L GLUCO SE 72 70 - 99 mg/dL 12/21 6:59 PM CDT [facility] Not Available Not Available 09/28/2024 09:40:51 12/22/19 24 12/22/2023 Compr ehens sheng metab olic 2000 panel - Serum or Plasm a urea nitrogen [mass/volume ] in serum or plasma 8 mg/dL low: 5mg/dL high: 18mg/d L BUN 8 5 - 18 mg/dL 12/21 6:59 PM CDT [facility] Not Available Not Available 09/28/2024 09:40:51 12/22/19 24 12/22/2023 Compr ehens sheng metab olic 1999 panel - Serum or Plasm a creatinine [mass/volume ] in serum or plasma 0.75 mg/dL low: 0.6mg/ dLhigh : 1mg/dL CREAT ININE , BLOOD 0.75 0.60 - 1.00 mg/dL 12/21 6:59 PM CDT [facility] Not Available Not Available 09/28/2024 09:40:51 12/22/19 24 12/22/2023 Compr ehens sheng metab olic 2000 panel - Serum or Plasm a urea nitrogen/cre atinine [mass ratio] in serum or plasma 11 text: 12 - 20 ratio low BUN/C REATI NINE RATIO 11 (L) 12 - 20 ratio 12/21 6:59 PM CDT [facility] Not Available Not Available 09/28/2024 09:40:51 12/22/19 24 12/22/2023 Compr ShomoLiveens sheng metab olic 1999 panel - Serum or Plasm a protein [mass/volume ] in serum or plasma 6.9 g/dL low: 6.3g/d Lhigh: 8.2g/d L TOTAL PROTE IN 6.9 6.3 - 8.2 g/dL 12/21 6:59 PM CDT [facility] LAB Not Available Not Available 09/28/2024 09:40:51 12/22/19 24 12/22/2023 Compr ehens sheng metab olic 2000 panel - Serum or Plasm a albumin [mass/volume ] in serum or plasma 4.3 g/dL low: 3.5g/d Lhigh: 5g/dL ALBUM IN 4.3 3.5 - 5.0 g/dL 12/21 6:59 PM CDT [facility] Not Available Not Available 09/28/2024 09:40:51 12/22/19 24 12/22/2023 Compr ShomoLiveens sheng metab olic 1999 panel - Serum or Plasm a albumin/glob ulin [mass ratio] in serum or plasma 1.7 low: 1high: 2.2 A/G RATIO 1.7 1.0 - 2.2 12/21 6:59 PM CDT [facility] [employer] R LAB Not Available Not Available 09/28/2024 09:40:51 12/22/19 24 12/22/2023 Compr ShomoLiveens sheng metab olic 1999 panel - Serum or Plasm a calcium [mass/volume ] in serum or plasma 9.4 mg/dL low: 8.7mg/ dLhigh : 10.5mg /dL CALCI UM 9.4 8.7 - 10.5 mg/dL 12/21 6:59 PM CDT [facility] [employer] [facility] LAB Not Available Not Available 09/28/2024 09:40:51 12/22/19 24 12/22/2023 Compr ShomoLiveens sheng metab olic 1999 panel - Serum or Plasm a bilirubin.to jack [mass/volume ] in serum or plasma 0.3 mg/dL low: 0.2mg/ dLhigh : 1.2mg/ dL T BILI 0.3 0.2 - 1.2 mg/dL 12/21 6:59 PM CDT [facility] [employer] [facility] LAB Not Available Not Available 09/28/2024 09:40:51 12/22/19 24 12/22/2023 Compr ehens sheng metab olic 1999 panel - Serum or Plasm a aspartate aminotransfe rase [enzymatic activity/vol ume] in serum or plasma 14 U/L low: 5U/Lhi gh: 34U/L SGOT (AST) 14 5 - 34 U/L 12/21 6:59 PM CDT [facility] [facility] R LAB Not Available Not Available 09/28/2024 09:40:51 12/22/19 24 12/22/2023 Compr ShomoLiveens sheng metab olic 2000 panel - Serum or Plasm a alanine aminotransfe rase [enzymatic activity/vol ume] in serum or plasma 10 U/L low: 0U/Lhi gh: 55U/L SGPT (ALT) 10 0 - 55 U/L 12/21 6:59 PM CDT [facility] LAB Not Available Not Available 09/28/2024 09:40:51 12/22/19 24 12/22/2023 Compr ehens sheng metab olic 2000 panel - Serum or Plasm a alkaline phosphatase [enzymatic activity/vol ume] in serum or plasma 88 U/L low: 40U/Lh igh: 150U/L ALKAL INE PHOSP HATAS E 88 40 - 150 U/L 12/21 6:59 PM CDT [facility] Not Available Not Available 09/28/2024 09:40:51 12/22/19 24 12/22/2023 Compr ShomoLiveens sheng metab olic 2000 panel - Serum or Plasm a glomerular filtration rate [volume rate/area] in serum, plasma or blood by creatinine-b ased formula (MDRD)/1.73 sq M among non black population low: 60 GFR, ESTIM ATED >60 >=60 12/21 6:59 PM CDT [facility] Not Available Not Available 09/28/2024 09:40:51 12/22/19 24 12/22/2023 Compr ShomoLiveens sheng Kolorific olic 2000 panel - Serum or Plasm a glomerular filtration rate [volume rate/area] in serum, plasma or blood by creatinine-b ased formula (MDRD)/1.73 sq M among black population low: 60 GFR, EST. AFRIC AN >60 >=60 12/21 6:59 PM CDT [facility] LAB Not Available Not Available 09/28/2024 09:40:51 12/22/19 24 12/22/2023 Compr ehens sheng metab olic 2000 panel - Serum or Plasm a glomerular filtration rate [volume rate/area] in serum, plasma or blood by creatinine-b ased formula (MDRD)/1.73 sq M among non black population low: 60 GFR, EST. NONAF RICAN >60 >=60 12/21 6:59 PM CDT [facility] Not Available Not Available 09/28/2024 09:40:51 12/22/1912/22/2023 Compr ehens sheng metab olic 2000 panel - Serum or Plasm a interpretati on and review of laboratory results Abnorm al Not Available Not Available 09:40:51 09/30/19 25 10/01/2024 CT, NG, TRICH VAG BY NATALIYA chlamydia by NATALIYA NEGATI VE negati ve Not Available [facility] ([facility]) [address] [place], [address], 10/01/2024 07:02:20 09/30/1910/01/2024 CT, NG, TRICH VAG BY NATALIYA gonococcus by NATALIYA NEGATI VE negati ve Not Available [facility] ([facility]) [address] [place], [address], 10/01/2024 07:02:20 09/30/19 25 10/01/2024 CT, NG, TRICH VAG BY NATALIYA trich vag by NATALIYA NEGATI VE negati ve Not Available [facility] ([facility]) [address] [place], [id number], 10/01/2024 07:02:20 09/30/19 25 09/30/2024 CT/GC NATALIYA, PHARY NGEAL C. trachomatis, NATALIYA, pharyn NEGATI VE negati ve Not Available [facility] ([facility]) [address] [place], [address], 10/01/2024 07:02:21 09/30/1909/30/2024 CT/GC NATALIYA, PHARY NGEAL N. gonorrhoeae, NATALIYA, pharyn NEGATI VE negati ve Not Available [facility] ([facility]) [address] [place], [address], 10/01/2024 07:02:21 09/30/19 25 09/29/2024 pregn teri test, urine HCG negati ve Not Available In-Office Order Internal Use Only DO Not Attach Compendium DO Not Attach Compendium, Do Not Delete/merge, [id number] 09/29/2024 16:18:47 11/18/19 25 11/17/2024 25-Hy droxy vitam in D3+25 -Hydr oxyvi tamin D2 [Mass /volu me] in Serum or Plasm a 25-hydroxyvi tamin D3+25-hydrox yvitamin D2 [mass/volume ] in serum or plasma 24.8 NG/mL Not Available Not Available 15:52:16 11/18/19 25 11/17/2024 25-Hy droxy vitam in D3+25 -Hydr oxyvi tamin D2 [Mass /volu me] in Serum or Plasm a Unknown Analyte Publis hed refere nce ranges for Vitami n D vary depend ing on time and place and method of testin g, and on patien t's age, sex, ethnic ity and levels of other measur ed analyt es such as parath ormone , calciu m and phosph orus. The result should be evalua nguyen in conjun ction with clinic al findin gs and suspic ions. [facility] Guidel sameer: Status Vitami n D levels (ng/mL ) Defici ent <=20 At risk of inadeq uacy 21-29 Suffic ient 30-100 Center s of Diseas e Contro l and Preven tion Guidel sameer: Status Vitami n D levels (ng/mL ) Defici ent <13 At risk of inadeq uacy 13-19 Suffic ient 20-50 Possib ly harmfu l >50 Refere nces: [facility], 2010 Dietar y refere nce intake s for calciu m and vitami n D. Shree lópez [place]: [employer]. Jorge Garcia, Mauricio pérez N, Dayana shultz-Alberto calvin JOHNSON, et al., Evalua tion, treatm ent, and preven tion of Vitami n D defici ency: an Endocr inolog y Clinic al Practi ce Guidel ine. JCEM 2011 96: 7 1911-1 930. Looker A, [place] barragan C, Carmen D, et al., Alicia n D Status : [place] , 2000-06 006, [facility] data brief, no. 59, Claudia gross MD: [facility]. 2010. Not Available Not Available 15:52:16 11/18/19 25 11/17/2024 CBC W Auto Diffe renti al panel - Blood leukocytes [#/volume] in blood by automated count 8.17 text: 4.00 - 12.00 10(3)/ mcL Not Available Not Available 11/18/2024 15:52:15 11/18/19 25 11/17/2024 CBC W Auto Diffe renti al panel - Blood erythrocytes [#/volume] in blood by automated count 4.31 text: 3.80 - 5.30 10(6)/ mcL Not Available Not Available 11/18/2024 15:52:15 11/18/19 25 11/17/2024 CBC W Auto Diffe renti al panel - Blood hemoglobin [mass/volume ] in blood 12.9 g/dL low: 12g/dL high: 15.8g/ dL Not Available Not Available 11/18/2024 15:52:15 11/18/19 25 11/17/2024 CBC W Auto Diffe renti al panel - Blood hematocrit [volume fraction] of blood by automated count 39.5 % low: 36%hig h: 47% Not Available Not Available 11/18/2024 15:52:15 11/18/19 25 11/17/2024 CBC W Auto Diffe renti al panel - Blood MCV [entitic mean volume] in red blood cells by automated count 91.6 fL low: 82fLhi gh: 96fL Not Available Not Available 11/18/2024 15:52:15 11/18/19 25 11/17/2024 CBC W Auto Diffe renti al panel - Blood MCH [entitic mass] by automated count 29.9 pg low: 26pghi gh: 34pg Not Available Not Available 11/18/2024 15:52:15 11/18/19 25 11/17/2024 CBC W Auto Diffe renti al panel - Blood MCHC [entitic mass/volume] in red blood cells by automated count 32.7 g/dL low: 31g/dL high: 36g/dL Not Available Not Available 11/18/2024 15:52:15 11/18/19 25 11/17/2024 CBC W Auto Diffe renti al panel - Blood platelets [#/volume] in blood 282 text: 140 - 440 10(3)/ mcL Not Available Not Available 11/18/2024 15:52:15 11/18/19 25 11/17/2024 CBC W Auto Diffe renti al panel - Blood erythrocyte [distwidth] in red blood cells by automated count 13.7 % low: 11.8%h igh: 15.5% Not Available Not Available 11/18/2024 15:52:15 11/18/19 25 11/17/2024 CBC W Auto Diffe renti al panel - Blood platelet [entitic mean volume] in blood by automated count 10.5 fL low: 9.7fLh igh: 12.4fL Not Available Not Available 11/18/2024 15:52:15 11/18/19 25 11/17/2024 CBC W Auto Diffe renti al panel - Blood neutrophils/ leukocytes in blood by automated count 53.8 % low: 47%hig h: 73% Not Available Not Available 11/18/2024 15:52:15 11/18/19 25 11/17/2024 CBC W Auto Diffe renti al panel - Blood lymphocytes/ leukocytes in blood by automated count 33.4 % low: 18%hig h: 42% Not Available Not Available 11/18/2024 15:52:15 11/18/19 25 11/17/2024 CBC W Auto Diffe renti al panel - Blood monocytes/le ukocytes in blood by automated count 7.6 % low: 4%high : 12% Not Available Not Available 11/18/2024 15:52:15 11/18/19 25 11/17/2024 CBC W Auto Diffe renti al panel - Blood eosinophils/ leukocytes in blood by automated count 4.2 % low: 0%high : 5% Not Available Not Available 11/18/2024 15:52:15 11/18/19 25 11/17/2024 CBC W Auto Diffe renti al panel - Blood basophils/le ukocytes in blood by automated count 1 % low: 0%high : 1% Not Available Not Available 11/18/2024 15:52:15 11/18/19 25 11/17/2024 CBC W Auto Diffe renti al panel - Blood neutrophils [#/volume] in blood by automated count 4.4 text: 1.60 - 7.70 10(3)/ mcL Not Available Not Available 11/18/2024 15:52:15 11/18/19 25 11/17/2024 CBC W Auto Diffe renti al panel - Blood lymphocytes [#/volume] in blood by automated count 2.73 text: 1.30 - 3.20 10(3)/ mcL Not Available Not Available 11/18/2024 15:52:15 11/18/19 25 11/17/2024 CBC W Auto Diffe renti al panel - Blood monocytes [#/volume] in blood by automated count 0.62 text: 0.20 - 1.00 10(3)/ mcL Not Available Not Available 11/18/2024 15:52:15 11/18/19 25 11/17/2024 CBC W Auto Diffe renti al panel - Blood eosinophils [#/volume] in blood by automated count 0.34 text: 0.00 - 0.40 10(3)/ mcL Not Available Not Available 11/18/2024 15:52:15 11/18/19 25 11/17/2024 CBC W Auto Diffe renti al panel - Blood basophils [#/volume] in blood by automated count 0.08 text: 0.00 - 0.10 10(3)/ mcL Not Available Not Available 11/18/2024 15:52:15 11/18/19 25 11/17/2024 CBC W Auto Diffe renti al panel - Blood nucleated erythrocytes /leukocytes [ratio] in blood 0 Not Available Not Available 11/07 15:52:15 11/18/19 25 11/17/2024 Cobal gotti ([place] min B12) [Mass /volu me] in Serum or Plasm a cobalamin (vitamin B12) [mass/volume ] in serum or plasma 385 pg/mL low: 213pg/ mLhigh : 816pg/ mL Not Available Not Available 11/18/2024 15:52:15 11/18/19 25 11/17/2024 Cobal gotti ([place] min B12) [Mass /volu me] in Serum or Plasm a interpretati on and review of laboratory results Normal Not Available Not Available 11/07 15:52:15 11/18/19 25 11/18/2024 Hepat itis C virus Ab Signa l/Cut off in Serum or Plasm a by Immun oassa y hepatitis C virus Ab signal/cutof f in serum or plasma by immunoassay 0.12 text: <1 S/co Signa l/Cut off ratio < 0.79 is Nonde tecte d Signa l/Cut off ratio 0.80- 0.99 is Grayz one Signa l/Cut off ratio > 0.99 is Detec nguyen Suppl ement al assay s are recom michel d if signa l/cut off ratio is >/=1. 00. Signa l/cut off ratio resul t >/= 5.00 is 97% predi ctive of posit ivity for recom binan t immun oblot assay (RIBA ) and will be repor nguyen to the [facility] ois Depar tment of Publi c Healt h as requi red. Not Available Not Available 11/18/2024 15:52:15 11/18/19 25 11/18/2024 Hepat itis C virus Ab Signa l/Cut off in Serum or Plasm a by Immun oassa y interpretati on and review of laboratory results Normal Not Available Not Available 11/07 15:52:15 11/18/19 25 11/17/2024 Folat e [Mass /volu me] in Serum or Plasm a folate [mass/volume ] in serum or plasma 5.6 NG/mL low: 7NG/mL high: 31.4NG /mL low Not Available Not Available 11/18/2024 15:52:15 11/18/19 25 11/17/2024 Folat e [Mass /volu me] in Serum or Plasm a thermoactino myces vulgaris IgG Ab [mass/volume ] in serum No Not Available Not Available 0 11/18/2024 15:52:15 11/18/19 25 11/17/2024 Folat e [Mass /volu me] in Serum or Plasm a interpretati on and review of laboratory results Abnorm al Not Available Not Available 15:52:15 11/18/19 25 11/17/2024 [facility] ehens sheng metab olic 1999 panel - Serum or Plasm a sodium [moles/volum e] in serum or plasma 142 mmol/ L low: 136mmo l/Lhig h: 145mmo l/L Not Available Not Available 11/18/2024 15:52:15 11/18/19 25 11/17/2024 Compr ehens sheng metab olic 1999 panel - Serum or Plasm a potassium [moles/volum e] in serum or plasma 4.2 mmol/ L low: 3.5mmo l/Lhig h: 5.1mmo l/L Not Available Not Available 11/18/2024 15:52:15 11/18/19 25 11/17/2024 Compr ehens sheng metab olic 1999 panel - Serum or Plasm a chloride [moles/volum e] in serum or plasma 110 mmol/ L low: 98mmol /Lhigh : 107mmo l/L high Not Available Not Available 11/18/2024 15:52:15 11/18/19 25 11/17/2024 [facility] - Serum or Plasm a carbon dioxide, total [moles/volum e] in serum or plasma 24 mmol/ L low: 22mmol /Lhigh : 30mmol /L Not Available Not Available 11/18/2024 15:52:15 11/18/19 25 11/17/2024 [facility] panel - Serum or Plasm a anion gap in serum or plasma by calculation 12.2 mmol/ L high: 18mmol /L Not Available Not Available 11/18/2024 15:52:15 11/18/19 25 11/17/2024 [facility] panel - Serum or Plasm a glucose [mass/volume ] in serum or plasma 81 mg/dL low: 70mg/d Lhigh: 99mg/d L Not Available Not Available 11/18/2024 15:52:15 11/18/19 25 11/17/2024 [facility] panel - Serum or Plasm a urea nitrogen [mass/volume ] in serum or plasma 13 mg/dL low: 5mg/dL high: 18mg/d L Not Available Not Available 11/18/2024 15:52:15 11/18/19 25 11/17/2024 [facility] [employer] 1999 panel - Serum or Plasm a creatinine [mass/volume ] in serum or plasma 1.06 mg/dL low: 0.6mg/ dLhigh : 1mg/dL high Not Available Not Available 11/18/2024 15:52:15 11/18/19 25 11/17/2024 [facility] 1999 panel - Serum or Plasm a urea nitrogen/cre atinine [mass ratio] in serum or plasma 12 : ratio Not Available Not Available 11/18/2024 15:52:15 11/18/19 25 11/17/2024 [facility] [employer] 1999 panel - Serum or Plasm a protein [mass/volume ] in serum or plasma 7.4 g/dL low: 6g/dLh igh: 8g/dL Not Available Not Available 11/18/2024 15:52:15 11/18/19 25 11/17/2024 [facility] 1999 panel - Serum or Plasm a albumin [mass/volume ] in serum or plasma 4.6 g/dL low: 3.5g/d Lhigh: 5g/dL Not Available Not Available 11/18/2024 15:52:15 11/18/19 25 11/17/2024 [facility] [employer] [facility] 1999 panel - Serum or Plasm a albumin/glob ulin [mass ratio] in serum or plasma 1.6 low: 1high: 2.2 Not Available Not Available 11/18/2024 15:52:15 11/18/19 25 11/17/2024 [facility] [employer] [facility] 1999 panel - Serum or Plasm a calcium [mass/volume ] in serum or plasma 9.5 mg/dL low: 8.7mg/ dLhigh : 10.5mg /dL Not Available Not Available 11/18/2024 15:52:15 11/18/19 25 11/17/2024 [facility] 1999 panel - Serum or Plasm a bilirubin.to jack [mass/volume ] in serum or plasma 0.2 mg/dL low: 0.2mg/ dLhigh : 1.2mg/ dL Not Available Not Available 11/18/2024 15:52:15 11/18/19 25 11/17/2024 Compr ehens sheng metab olic 1999 panel - Serum or Plasm a aspartate aminotransfe rase [enzymatic activity/vol ume] in serum or plasma 25 U/L high: 43U/L Not Available Not Available 11/18/2024 15:52:15 11/18/19 25 11/17/2024 Compr ehens sheng metab olic 1999 panel - Serum or Plasm a alanine aminotransfe rase [enzymatic activity/vol ume] in serum or plasma 12 U/L high: 56U/L Not Available Not Available 11/18/2024 15:52:15 11/18/19 25 11/17/2024 Compr ehens sheng metab olic 1999 panel - Serum or Plasm a alkaline phosphatase [enzymatic activity/vol ume] in serum or plasma 69 U/L low: 40U/Lh igh: 150U/L Not Available Not Available 11/18/2024 15:52:15 11/18/19 25 11/17/2024 Compr ehens sheng metab olic 2000 panel - Serum or Plasm a IS the patient required to BE fasting? No Not Available Not Available 11/18/2024 15:52:15 11/18/19 25 11/17/2024 Compr ehens sheng metab olic 2000 panel - Serum or Plasm a glomerular filtration rate [volume rate/area] in serum, plasma or blood by creatinine-b ased formula (CKD-epi 2020)/1.73 sq M low: 60 Creat inine Clear ance is the prefe rred crite ke[place] for selec ting drug dose adjus tment s in renal ly impai red patie nts. The GFR is provi ded as addit ional perti nent clini julia infor matio n. GFR is repor nguyen in mL/mi n/1.7 3 sq m. Calcu latio n based on the Chron ic Kidne y Disea se Epide miolo gy Colla borat ion (CKD- EPI) equat ion refit witho ut adjus tment for race. Not Available Not Available 11/18/2024 15:52:15 11/18/19 25 11/17/2024 Compr ehens sheng metab olic 2000 panel - Serum or Plasm a glomerular filtration rate [volume rate/area] in serum, plasma or blood by creatinine-b ased formula (MDRD)/1.73 sq M among black population low: 60 Not Available Not Available 11/18/2024 15:52:15 11/18/19 25 11/17/2024 Compr ehens sheng metab olic 2000 panel - Serum or Plasm a glomerular filtration rate [volume rate/area] in serum, plasma or blood by creatinine-b ased formula (MDRD)/1.73 sq M among non black population low: 60 Not Available Not Available 11/18/2024 15:52:15 11/18/19 25 11/17/2024 Compr ehens sheng metab olic 2000 panel - Serum or Plasm a interpretati on and review of laboratory results Abnorm al Not Available Not Available 15:52:15 Result Notes None recorded. Problems Name Problem SNOMED Code Status Onset Date Resolution Date Notes Provider Name and Address Organization Details Recorded Time Depressive disorder 41429644 Active 2022 Isabelle Lay MA null, [place] - [facility] 3 15:54:43 History of Helicobacte r pylori infection 6838295620579 9108 Active 2022 RADHA DENISE MD Attn: Maddie pink,[address] [place], [address], [place] - [facility] 3 17:06:24 Mood disorder 08283992 Active 2023 RADHA DENISE MD Attn: Maddie pink,[address] [place], [address], [place] [facility] 4 16:44:42 Insomnia 532016314 Active 2023 RADHA DENISE MD Attn: Maddie pink,[address] [place], [address], [place] [facility] 4 16:44:44 Problem Notes None recorded. Procedures Surgical History Date Name Laterality Status Provider Name and Address Organization Details Recorded Time 1 Depo Injection completed Isabelle Lay [place] [facility] 06/13/2020 10:53:35 0 Depo Injection completed Isabelle Lay [place] [facility] 03/22/2020 12:11:28 Ear Tube completed Cathy Brooke [place] [facility] 01/08/2018 13:55:27 Imaging Results None recorded. Procedure [...] completed Not Available Not Available Not Available butalbital- acetaminoph en-caffeine 50 mg-300 mg-40 mg capsule TAKE 1 CAPSULE BY MOUTH EVERY 8 HOURS NEEDED FOR PAIN active Not Available Not Available No t Available Xulane 150 mcg-35 mcg/24 hr transdermal [...] No t Available Vitals Date Recorded Body height Body mass index (BMI) Body mass index (BMI) [Percentile] Per age and sex Body weight Oxygen saturation Oxygen saturation in Arterial blood by Pulse oximetry Heart rate Systolic And Diastolic Provider Name and Address Organization Details Last Updated DateTime 5 167.64 cm 27.9 kg/m2 88 % 98901.4 8 g 100 % 100 % 78 /min 109/77 mm[Hg] Rebeka Martinez MA [facility] 5 16:11:58 Date Recorded Body height Body mass index (BMI) [Percentile] Per age and sex Body mass index (BMI) Body weight Oxygen saturation Oxygen saturation in Arterial blood by Pulse oximetry Heart rate Body temperature Systolic And Diastolic Provider Name and Address Organization Details Last Updated DateTime 4 167.64 cm 26 % 19.9 kg/m2 15206.8 6 g 99 % 99 % 92 /min 98.7 [degF] 110/74 mm[Hg] Rebeka Hopkins MA [place] - [facility] 4 14:56:20 Date Recorded Body height Body mass index (BMI) [Percentile] Per age and sex Body mass index (BMI) Body weight Oxygen saturation Oxygen saturation in Arterial blood by Pulse oximetry Body temperature Heart rate Systolic And Diastolic Provider Name and Address Organization Details Last Updated DateTime 4 167.64 cm 43 % 21.2 kg/m2 11777.3 g 100 % 100 % 98.1 [degF] 90 /min 114/76 mm[Hg] Isabelle Lay MA [facility] 4 12:41:09 Date Recorded Body height Body mass index (BMI) Body mass index (BMI) [Percentile] Per age and sex Body weight Oxygen saturation Oxygen saturation in Arterial blood by Pulse oximetry Heart rate Respiratory rate Body temperature Systolic And Diastolic Provider Name and Address Organization Details Last Updated DateTime 3 167.64 cm 26.1 kg/m2 85 % 19254.9 6 g 98 % 98 % 110 /min 16 /min 97.5 [degF] 110/60 mm[Hg] Lauryn De La Vegate [facility] 3 14:32:08 Date Recorded Body height Body mass index (BMI) [Percentile] Per age and sex Body mass index (BMI) Body weight Heart rate Oxygen saturation Oxygen saturation in Arterial blood by Pulse oximetry Systolic And Diastolic Provider Name and Address Organization Details Last Updated DateTime 4 167.64 cm 82 % 25.9 kg/m2 14675.8 3 g 96 /min 98 % 98 % 109/71 mm[Hg] Rebeka Martinez MA [facility] 4 15:50:18 Social History Question Answer Notes LastModified by Organizat ion Details LastModified Time Tobacco Smoking Status Never Smoker ALYCE Ball, [facility] 01/08/2018 13:56:41 Animal Exposure? Yes 1 Dog [email or web address] Informa tion not available 01/08/2018 Are You Blind Or Do You Have Difficulty Seeing? No Information not available 10/17/2022 Is Blood Transfusion Acceptable In An Emergency? Yes Information not available 01/14/2018 What Is Your Level Of Caffeine Consumption? Occasional Information not available 10/17/2022 How Much Tobacco Do You Chew? None Information not available 01/14/2018 What Type Of Serials Librarian Do You Use? None [email or web address] Information not available 01/08/2018 In The 14 Days Before Symptom Onset, Have You Had Close Contact With A Laboratory-confir med COVID-19 While That Case Was Ill? No [email or web address] Information not available 08/16/2020 In The 14 Days Before Symptom Onset, Have You Had Close Contact With A Person Who Is Under Investigation For COVID-19 While That Person Was Ill? No [email or web address] Information not available 08/16/2020 Have You Been To An Area Known To Be High Risk For COVID-19? No [email or web address] Information not available 08/16/2020 Are You Deaf Or Do You Have Serious Difficulty Hearing? No Information not available 10/17/2022 What Type Of Diet Are You Following? REGULAR [email or web address] Information not available 01/08/2018 Which Illicit Or Recreational Drugs Have You Used? Denies Information not available 01/14/2018 Education 12 Information no t available 10/17/2022 What Is The Highest Grade Or Level Of School You Have Completed Or The Highest Degree You Have Received? [id number] [email or web address] Information not available 08/16/2020 Have There Been Any Changes To Your Family Or Social Situation? No [email or web address] Information no t available 01/08/2018 Are There Any Guns Present In Your Home? No [email or web address] Information not available 01/08/2018 What Is Your Home Situation? Other Moms Friend Chase [email or web address] Information not available 12/18/2023 Do You Use Insect Repellent Routinely? Yes [email or web address] Information not available 01/08/2018 Live Alone Or With Others? With Others Information not available 01/14/2018 Car Seat Type Or Seat Belt? Seat Belt [email or web address] Information not available 01/08/2018 Parent Involvement? Mom Not Involved [email or web address] Information not available 01/08/2018 Riding In Car Front Seat? Yes [email or web address] Information not available 01/08/2018 What Was The Date Of Your Most Recent Tobacco Screening? 09/29/2024 Information not available 09/29/2024 How Many Children Do You Have? 0 Information not available 01/14/2018 What Is Your Parents' Marital Status? Unmarried [email or web address] Information not available 01/08/2018 Do You Have Any Pets? Yes [email or web address] Information not available 08/16/2020 Pool Exposure No [email or web address] Informatio n not available 01/08/2018 Do You Use Protection During Sex? Always Information not available 10/17/2022 What Is Your Relationship Status? Single Information not available 01/14/2018 Do You Use Your Seat Belt Or Car Seat Routinely? Yes Information not available 08/16/2020 Seat Belts Used Routinely Yes Information not available 01/14/2018 Are You Sexually Active? Yes Information not available 05/26/2018 Do You Have Any Siblings? 1 1/2 Brotehr On Mom Side Information not available 01/08/2018 Do You Have Smoke And Carbon Monoxide Detectors In Your Home? Yes [email or web address] Information not available 01/08/2018 Are You Passively Exposed To Smoke? No Information no t available 10/17/2022 How Much Tobacco Do You Smoke? No [email or web address] Information not available 07/20/2019 General Stress Level [...] use any illicit or recreational drugs? Yes marinylaanna [email or web address] Information not available 01/28/2023 Do you or have you ever used any other forms of tobacco or nicotine? No Information not available 08/16/2020 What is your level of alcohol consumption? None Information not available 01/14/2018 Do you or have you ever used smokeless tobacco? Never used smokeless tobacco [email or web address] Information not available 07/20/2019 Are you currently employed? No [email or web address] Information not available 01/28/2023 Are you able to care for yourself independently? Yes Information not available 10/17/2022 Do you or have you ever used e-cigarettes or vape? Current user of electronic cigarettes Information not available 10/17/2022 What is your exercise level? Heavy Information not available 10/17/2022 Mental Status Question Answer Note LastModified by Organization D etails LastModified Time Do you feel stressed (tense, restless, nervous, or anxious, or unable to sleep at night)? [id number] Information not available 10/17/2022 Are you or have you been involved with bullying? No [email or web address] Information not available 01/08/2018 Family History Relationship Description Onset Age of this Age Resolved Age Notes LastModified by Organization Details LastModified Time Maternal Grandfather Diabetes mellitus [email or web address] Not available 07/2017 13:56:12 Maternal Grandfather Cerebrovascu lar accident [email or web address] Not available 01/2018 15:11:36 Mother Asthma [email or web address] Not availabl e 01/08/2018 13:56:27 Mother Endometriosi s (clinical) [email or web address] Not available 15:50:06 Maternal Grandmother Asthma [email or web address] Not available 13:56:27 Maternal Grandmother Hypertensive disorder [email or web address] Not available 2017 15:11:19 Paternal Grandfather Hypertensive disorder [email or web address] Not available 2017 15:11:19 Paternal Grandfather Cerebrovascu lar accident [email or web address] Not available 01/2018 15:11:36 Notes:Pt's mother liver fail ure- Pt states due to alcohol 12/18/23 Medical History Condition Response Other N High Blood Pressure N Atrial Fibrillation N Blood Diseases N Breast Cancer N Blood Clots N COPD N Depression N Lung Disease N Developmental or Behavioral Disorders N Breast Problem N Premature N Anesthesia Complications N Headaches/Migraines N Anxiety Disorder N Muscle, Joint, or Bone Problems N Vision or Eye Problems N Head Injury/Concussion N Infertility N Polyps N Acid Reflux (GERD) N Cancer N ADHD N Endometriosis N Bladder or Kidney Problems N High Cholesterol N Liver Disease N Headaches N Ear or Hearing Problems N Thyroid Problems N Kidney or Bladder Problems N GI Problems N Acne Y Skin Problems N Eating Disorder N Anemia N Constipation N Heart Attack ([place]) N Ovarian Cancer N Diabetes N Bedwetting [...] Recorded Time HPV9 2 completed Day Borjas, LENS MARKER, OFFICE SERVICES SPECIALIST-C Attn: [address] [place], [place], [address] [place] [address], [place] [facility] 01/28/2023 14:51:51 influenza, split (incl. purified surface antigen) 9 completed Day Borjas LENS MARKER, OFFICE SERVICES SPECIALIST-C Attn: [address] [place], [place], [address] [place] [address], [place] [facility] 01/28/2023 14:51:51 Hep A, pediatric, unspecified formulation 0 completed Day Borjas LENS MARKER, OFFICE SERVICES SPECIALIST-C Attn: [address] [place], [place], [address] [place] [address], [place] [facility] 01/28/2023 14:51:51 Hep A, pediatric, unspecified formulation 9 completed Day Borjas LENS MARKER, OFFICE SERVICES SPECIALIST-C Attn: Accounting,[address] [place], [place], [address] [place] [address], [place] [facility] 01/28/2023 14:51:51 HPV9 8 completed Not Available [facility] 06/26/2019 02:35:53 meningococcal MCV4P 8 completed Not Available [facility] 06/26/2019 02:35:52 Tdap 8 completed Not Available [facility] 06/26/2019 02:41:33 HPV9 9 completed Not Available [facility] 06/26/2019 02:37:03 DTaP 4 completed Cathy Brooke [place], [place] [facility] 01/07/2018 15:22:34 DTaP 4 completed [place]athy Bro[place] [facility] 01/07/2018 15:22:40 DTaP 4 [place]CE [place] [facility] 01/07/2018 15:22:46 DTaP 5 [place] [facility] 01/07/2018 15:22:53 DTaP-IPV 9 completed Cathy Brooke [place] [facility] 01/07/2018 15:23:06 Hib, unspecified formulation 4 [place] [facility] 01/07/2018 15:23:20 Hib, unspecified formulation 4 [place] [facility] 01/07/2018 15:23:28 Hib, unspecified formulation 5 [place] [facility] 01/07/2018 15:23:36 Hib-Hep B 4 [place] [facility] 01/07/2018 15:23:48 Hep A, ped/adol, 2 dose 9 completed Day Borjas APN, OFFICE SERVICES SPECIALIST-C Attn: Accounting,[address] [place], [address], [place] [facility] 01/28/2023 14:52:01 Hep A, ped/adol, 2 dose 0 completed Day Borjas APN, OFFICE SERVICES SPECIALIST-C Attn: Accounting,[address] [place], [address], [place] [facility] 01/28/2023 14:52:01 Hep B, adolescent or pediatric 4 [place] [facility] 01/07/2018 15:24:49 Hep B, adolescent or pediatric 4 [place] [facility] 01/07/2018 15:24:58 influenza, unspecified formulation 4 [place] [facility] 01/07/2018 15:25:26 influenza, unspecified formulation 7 [place] [facility] 01/07/2018 15:25:33 Influenza, injectable,quadriv alent, preservative free, pediatric 9 completed Day Borjas APN, OFFICE SERVICES SPECIALIST-C Attn: Accounting,[address] [facility], [place], [address], [place] [facility] 01/28/2023 14:52:01 MMR 5 [place] [facility] 01/07/2018 15:26:07 MMR 9 [...] - [facility] 01/07/2018 15:27:04 IPV 4 [place] [facility] 01/07/2018 15:27:10 IPV 5 [place] [facility] 01/07/2018 15:27:25 varicella 5 [place] [facility] 01/07/2018 15:27:49 varicella 9 [place] [facility] 01/07/2018 15:27:56 Past Encounters Encounter ID Performer Location Encounter Start Date Encounter Closed Date Diagnosis/Indication Diagnosis SNOMED-CT Code Diagnosis ICD10 Code Diagnosis IMO Codes Diagnosis Note [id number] [facility] [address] [place] [address] 01/08/2018 13:31:28 01/12/2018 12:18:57 Well child 094695953 Z00.679 [id number] MD Koby Early (PROSTHODONTIST/OWNER) [address] [place] [address] 01/14/2018 14:36:03 01/16/2018 15:50:21 Irregular periods 27500902 N92.6 Will check hormones and start OCPs. Rx sent to pharmacy. Gilda gonsalves discussed. [id number] MD Koby Early (PROSTHODONTIST/OWNER) [address] [place] [address] 05/26/2018 15:48:49 05/27/2018 10:43:04 Missed period 23190421 N92.5 UPT negative, dwp. Contracept ion care management 647319127 Z30.9 Possibilit y of OCPs taking away [...] insertion. Arch applicatio n filled out, given. [id number] [facility] [address] [place] [address] 07/15/2018 15:54:49 07/16/2018 13:06:16 Active or passive immunization 747479038 Z23 [id number] MD Arti Earlyhalto (PROSTHODONTIST/OWNER) [address] [place] [address] 02/23/2019 16:00:53 02/24/2019 12:16:33 Oral contraceptive prescribed 662371983 Z30.011 control options discussed. Pt. wants pills. Rx sent to pharmacy. Gilda gonsalves discussed. [id number] MD Koby Early (PROSTHODONTIST/OWNER) [address] [place] [address] 07/20/2019 10:21:50 07/21/2019 08:44:25 Dysuria 36030834 R30.9 UA negatve, dwp. Dehydratio n discussed. Surveillan ce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
--- OUTSIDE RECORDS SUMMARY | 2025-03-12 15:25 | XMS_ITS | Patient Health Record ---
Author Organization [facility] Address [address] [place] [address] Support Name Relationship Address Phone Penny Kaiser [...] Test Name Order Date COMPREHENSIVE METABOLIC PANEL (57117) CBC (INCLUDES DIFF/PLT) (6399) THYROID PANEL WITH TSH (7444) 10/16/2023 Insurance Providers Payer Name Payer Address Payer Phone Subscriber Number Group Number Insured Name Patient Relationship to Insured Coverage Start Date Coverage End Date [place] of [place] [address] [address] [place] [address] [id number] Awilda Penny Self - patient is the insured Medical (General) History Medical History History ICD Code Undiagnosed/Diagnosed Manic Bipolar Diso rder 16-17 years old honestly OCD Same day I was told some thing I wasn't and I knew that already I'm not stupid I promise you that they make people feel dumb and they know that
--- OUTSIDE RECORDS SUMMARY | 2025-03-12 15:25 | XMS_ITS | Clinical Summary ---
Author Organization [facility] Building B Address [address] [place] [address] Care Team Providers Care Neonatal Intensive Care Nurse Name Role Phone No, Physician Primary Care Provider Allergies No known active allergies Medications medroxyPROGESTERon [...] on file Legal Sex Female 9:53 AM FIRE SAFETY INSPECTOR Gender Identity Not on file Sexual Orientation [...] Comments Blood Pressure 118/72 04/18/2022 2:18 PM FIRE SAFETY INSPECTOR Pulse - - Temperature - - Respiratory Rate - - Oxygen Saturation - - Inhaled Oxygen Concentration - - Weight 58.9 kg (129 lb 12.8 oz) 04/18/2022 2:18 PM FIRE SAFETY INSPECTOR Height 170.2 cm (5' 7) 12/27/2021 3:26 [...] 12/27/2021, 11/2018, 01/08/2018 Insurance IDPA Care Teams Neonatal Intensive Care Nurse Relationship Specialty Start Date End Date No, Physician PCP - General 10/03/21
--- OUTSIDE RECORDS SUMMARY | 2025-03-12 15:25 | XMS_ITS | Clinical Summary ---
Author Organization [facility] Address [address] [place] [address] Phone Care Team Providers Care Electrician [employer] Name Role Phone Kaity Fink [employer], SALES CONTRACT ADMINISTRATOR Primary Care Provider + Ramos Ahn MD Unavailable [phone] Allergies No known active allergies Medications Ypxjoxdtvx-NSAH-G affeine 50-300-40 MG Capsule Take 1 Capsule [...] Encounters Date Type Department Care Team Description 03/12[facility]2025 [facility] [address] [place] [address] Kaity Fink, [employer], SALES CONTRACT ADMINISTRATOR Advice Only 03/07/2025 Nurse Triage [facility] [address] [place] [address] Kaity Fink, [employer], SALES CONTRACT ADMINISTRATOR Cough; Nasal Congestion; Sore Throat 12/17/2024 Travel 12/16/2024 10:00 AM CDT [facility] [address] [place] [address] Ramos Ahn MD Epigastric pain (Primary Dx); History of Helicobacter pylori infection Discharge Disposition: Discharged to home or Selfcare 12/16/20[facility] [place] [address] Ramos Ahn MD 12/16/2024 Travel from Last 3 Months [...] 12/16/2024 10:05 AM CDT Plan of Treatment Upcoming Encounters Date Type Department Care Team (Late st Contact Info) Description 03/15/2025 3:15 PM CDT Office Visit [facility] - Family Medicine [facility] [address] [place] [address] Kaity Fink, [employer], SALES CONTRACT ADMINISTRATOR [address] [place] [address] Health Maintenance Due Date Last Done Comments [...] 0.12 <1 S/CO 11/18/2024 2:26 PM CDT [facility] Comment: Signal/Cutoff ratio < 0.79 is Nondetected Signal/Cutoff ratio 0.80-0.99 is Grayzone Signal/Cutoff ratio > 0.99 is Detected Supplemental assays are recommended if signal/cutoff ratio is >/=1.00. Signal/cutoff ratio result >/= 5.00 is 97% predictive of positivity for recombinant immunoblot assay (RIBA) and will be reported to the [place] Department of Public Health as required. Blood Venipuncture / Unknown 11/17/2024 4:44 PM CDT 11/17/2024 4:55 PM CDT us Kaity Fink [employer], SALES CONTRACT ADMINISTRATOR CHEMISTRY ORDERABLES Fin al Result [facility] [address] [place] [address], from Last 3 Months or Most Recently Relevant to Health Maintenance Insurance MEDICAID [facility] Care Teams Electrician [employer] Relationship Specialty Start Date End Date Kaity Fink, [employer], SALES CONTRACT ADMINISTRATOR [address] [place] [address] PCP - General Advanced Practice Nurse 11/17/24 Ramos Ahn MD [address] [facility]. [address] [place] [address] Consulting Physician General Surgery 12/16/24
--- OUTSIDE RECORDS SUMMARY | 2025-03-12 15:25 | XMS_ITS | Encounter Summary ---
Author Organization [facility] Address [address] [place] [address] Phone Care Team Providers Care Senior Software Tester Name Role Phone Kaity Fink STOCK SPECULATOR, ELECTRONIC SECURITY TECHNICIAN Primary Care Provider + Ramos Ahn MD Unavailable [phone] Reason for Visit * Reason Onset Date Comments Advice Only 03/12/2025 Encounter Details Date Type Department Care Team (Late st Contact Info) Description 03/12/2025 Telephone [facility] [address] [place] [address] Kaity Fink, STOCK SPECULATOR, ELECTRONIC SECURITY TECHNICIAN [address] [place] [address] Advice Only Social History Tobacco Use Types Packs/Day Years Used Date Smoking Tobacco: Never Smokeless Tobacco: Never Alcohol Use Standard Drinks/Week Comments Not Currently 0 (1 standard drink = 0.6 oz pur e alcohol) PHQ-2 Answer Date Recorded Total Score - Questions 1-9 4 11/07 Comments No Sex and Gender Information Value Date Recorded Sex Assigned at Not on file Legal Sex Female 12:25 AM CDT Gender Identity Not on file Sexual Orientation Not on file documented as of this encounter Miscellaneous Notes * Telephone Encounter - Lizet Martinez RN - 03/12/2025 2:51 PM CDT SITUATION: Advice only BACKGROUND: Patient contacting PCP office. Patient calling using a loud angry voice due to her Sudafed prescription not being sent from a prompt care when she was seen on 03/07/2025. Patient was not seen at an [facility] but states she was diagnosed with a viral infection. Explained to her usually Sudafed is an [id number] medication but you have to show you residential driver's license for this medication if it contains the pseudoephedrine in it. Patient states the pharmacy would not even let her ruiz pay for this and that she could not afford that. Advised if she is wanting a prescription for Sudafed she will have to be seen again. Patient became angry and ended the call before further triaging could be completed. documented in this encounter Plan of Treatment Upcoming Encounters Date Type Department Care Team (Late st Contact Info) Description 03/15/2025 3:15 PM CDT Office Visit [facility] [address] [place] [address] Kaity Fink APRN, ELECTRONIC SECURITY TECHNICIAN [address] [place] [address] documented as of this encounter Visit Diagnoses Not on filedocumented in this encounter Additional Health Concerns Assessment Noted Time PHQ-9 Depression Total Score: 4 11/18/19 25 3:37 PM CDT documented as of this encounter Care Teams Senior Software Tester Relationship Specialty Start Date End Date Kaity Fink, STOCK SPECULATOR, ELECTRONIC SECURITY TECHNICIAN [address] [facility] [place] [place] [address] PCP - General Advanced Practice Nurse 11/17/24 Ramos Ahn MD 2 [facility] [address] [address] Consulting Physician General Surgery 12/16/24 documented as of this encounter
[2025-03-12 15:26] VITALS: BP 131/86; PULSE 86; RESP 16; TEMP 36.8; O2SAT 100
--- NOTE | 2025-03-12 16:08 | ED_ITS ---
HPI - URI/Sore Throat General Chief Complaint: Upper Respiratory Infection Stated Complaint: head congestion Time Seen by Provider: 03/12/25 16:00 Source: patient and RN notes reviewed Mode of arrival: ambulatory Limitations: no limitations History of Present Illness HPI Narrative: 19-year-old female presents Express Care complaining of upper respiratory symptoms for approximately 9 days. Patient was seen here recently was diagnosed with a viral infection, was discharged with Sudafed, Zofran, and and to anticholinergic nasal spray. Patient says she is able to get the Sudafed at the pharmacy stating they would not let her get it. Patient continues to have sinus congestion, mucopurulent nasal drainage, dry nonproductive cough. Patient denies any fevers, chest pain, shortness of breath, nausea, vomiting, diarrhea, abdominal pain, or any other upper respiratory symptoms. Patient has not tried anything else [id number] to help with symptoms. Related Data Home Medications ?Medication ?Instructions ?Recorded ?Confirmed ?Last Taken ?Type levonorgestrel 120 mcg-e.estradiol patch 11/13/2412/07 Unknown History 30 mcg/24 hr weekly transderm patch (Twirla) Allergies Allergy/AdvReac Type Severity Reaction Status Date / Time No Known Allergies Allergy Verified 03/12/25 15:34 Review of Systems Review of Systems: CONSTITUTIONAL: Denies fever, body aches, chills, or sweats. EYES: Denies visual changes, redness, or discharge. ENT: Denies rhinorrhea, sore throat, or otalgia. Positive for congestion, sinus pressure, nasal drainage. CARDIOVASCULAR: Denies chest pain, palpitations, or edema. RESPIRATORY: Positive for cough. Negative for difficulty breathing or dyspnea. GASTROINTESTINAL: Denies abdominal pain, nausea, vomiting, or diarrhea. GENITOURINARY: Denies dysuria or hematuria. SKIN: Denies rash or itching. MUSCULOSKELETAL: Denies back pain, joint pain, or myalgia. NEUROLOGIC: Denies headache, numbness, or weakness. PSYCHIATRIC: Denies anxiety or depression. All other systems reviewed are negative, except as documented in HPI. [facility] Past Medical History Medical History IBS (irritable bowel syndrome) GERD (gastroesophageal reflux disease) Anemia Anxiety Surgical History Surgical History No pertinent past surgical history Family History Family History Mother Depression Heart disease Hypertension Grandparent Breast cancer Diabetes mellitus Heart disease Hypertension Father Depression Other Cerebrovascular accident Social History Social History Smoking status: Current every day smoker Tobacco type: e-cigarettes/vaping Alcohol intake: current Alcohol use details: social Substance use: current Substance use type: marijuana Do You Feel Safe in your Home?: Yes Lack of Transportation: No Lack of Food: Never True Current Housing: I Have Housing Concerned About Future Housing: No Difficulty Paying Gas/Electric Bills: No Difficulty Paying for Meds: No Currently Unemployed: No Education: High School Diploma/GED Difficulty w/ Childcare or Family Care: No Gender identity (if verbalized by the patient): Female Sexual Orientation (if Verbalized by the Patient): Straight or Heterosexual Spiritual care concerns: No Comments At the time of my signature, I reviewed and agree with the nursing past medical, surgical, social, and family history. There is no relevant family history pertinent to the patient complaint. Exam Narrative: GENERAL: This is a well-nourished, well-developed adult, in no apparent distress. They are non ill-appearing, nontoxic appearing. Patient is upset, calmed with reassurance. HEAD: normocephalic, atraumatic. EYES: Sclera clear/white. Conjunctiva normal. Vision is grossly intact. Extraocular movements intact EARS: External ears normal, auditory canals clear and without drainage, TMs normal without perforation. Hearing grossly intact. NOSE: External nose normal with no obvious nasal discharge, nasal turbinates erythematous, exudate present. No rhinorrhea. Frontal maxillary sinus tenderness to palpation. THROAT: Mucous membranes moist, posterior pharynx boggy with no erythema. Uvula midline. Postnasal drip present. NECK: Neck supple, non-tender without lymphadenopathy, masses or thyromegaly. CARDIOVASCULAR: Regular rate and rhythm without murmurs, gallops, or rubs. RESPIRATORY: Clear to auscultation. Breath sounds equal bilaterally. No wheezes, rales, or rhonchi. Respiratory rate normal, respiratory effort nonlabored, no respiratory distress SKIN: warm, Dry, intact with no suspicious lesions or rash, good texture and turgor. NEURO: awake, alert, and oriented to person, place and time. There were no obvious focal neurologic abnormalities. EXTREMITIES: No joint tenderness, effusion, or edema noted. Course Course Emergency Course: Portions of this record may have been created with voice recognition software Level of Care: Express Care Visit Vital Signs Vital signs: Vital Signs Temperature 98.3 F 03/12/25 15: Pulse Rate 86 03/12/25 15: Respiratory Rate 16 03/12/25 15: Blood Pressure 131/86 03/12/25 15: Pulse Oximetry 100 03/12/25 15:26 Oxygen Delivery Room Air 03/12/25 15: Temperature 98.3 F 03/12/25 15: Pulse Rate 86 03/12/25 15: Respiratory Rate 16 03/12/25 15:26 Blood Pressure 131/86 03/12/25 15:26 Pulse Oximetry 100 03/12/25 15:26 Oxygen Delivery Room Air 03/12/25 15:26 Reviewed MDM - URI/Sore Throat MDM Narrative Medical decision making narrative: Given patient's length of symptoms is likely she has developed a bacterial sinusitis. Will send a prescription of Augmentin. Discussed physical exam findings. Advised supportive measures and signs/symptoms to go to the ER. Pt is appropriate for outpt treatment and f/u. Differential Diagnosis Differential diagnosis: Likely upper respiratory infection, sinusitis, viral infection, bronchitis and pharyngitis Critical Care Time Critical Care Time Critical Care Time: No Discharge Plan Discharge Clinical Impression: Sinusitis Patient Disposition: Home Condition: Stable Instructions: Antibiotic Form, Sinusitis (ED) Additional Instructions: Take the antibiotics as directed and complete the course even if you start to feel better. You may use a Neti pot saline rinse 3 times a day with lukewarm distilled water Continue to take Tylenol or Motrin for pain. Follow instructions on the bottle. Use a humidifier or vaporizer at night. Drink plenty of water. 8-10 glasses per day. Follow up with Primary provider in 3-5 days Please go to the ER if he develops any difficulty breathing, chest pains, nausea, vomiting, worsening symptoms, or any other concerns Patient Language: Montserratian Prescriptions: New amoxicillin-pot clavulanate 875-125 mg tablet 1 tablet PO Q12H 7 Days Qty: 14 0RF No Action pseudoephedrine HCl [12 Hour Decongestant] 120 mg tablet extended release 120 mg PO Q12H PRN (Reason: nasal congestion) Qty: 20 0RF Twirla 120-30 mcg/24 hr patch weekly Follow-up/Referrals: Kaity Fink, RN [Primary Care Provider, Nursing] Stand Alone Forms: Work/School Release IP Time of Disposition: 16:06
== END 2025-03-12 16:13 | disposition home or self-care (01) ==
DX: J32.9 Chronic sinusitis, unspecified (principal); F17.290 Nicotine dependence, other tobacco product, uncomplicated; F12.90 Cannabis use, unspecified, uncomplicated; K21.9 Gastro-esophageal reflux disease without esophagitis
CPT/HCPCS: 99213; G0463